=== PATIENT | male | born 1955 | race Caucasian/White ===

== ENCOUNTER 2023-12-15 22:55 | Inpatient (IN) | payer MEDICARE, OTHER, SELFPAY ==
[2023-12-15 18:22] VITALS: BP 130/91
--- NOTE | 2023-12-15 18:35 | ED.GENMED ---
History of Present Illness
General
Chief Complaint: Change in Mental Status
Source: patient
Exam Limitations: none
Time Seen by Provider: 12/15/23 18:31
Nursing documentation reviewed up to this point in time: agreed with
Travel History
Have you had any contact with someone who has COVID-19?: Unable to Answer
Do you have any symptoms of coronavirus? Fever > 100 degrees, chills, cough, shortness of breath, sore throat, loss of taste or smell, muscle aches, or headache?: No
History of Present Illness
History of Present Illness:
68-year-old male presents emergency ferment due to altered mental status and confusion for the last 2 hours. He has fallen 2 days ago, and hit his head and back, and refused evaluation. He has been up and around since the fall. He is on radiation
for brain tumors.
Past History
Past History
ED Past Medical History: Arrthythmia (Atrial fibrillation), Cancer (Lung, brain, prostate), GERD, HTN and Other (Defibrillator, psoriasis)
Social History
Tobacco: Former smoker
Alcohol: None
Drug: None
Personal:
Living: with family
Review of Systems
Review of Systems
Allergies reviewed?: Yes
Unable to obtain full review of systems at this time due to: non-verbal
All Other Systems: Not applicable
Phy Exam
Physical Exam
Physical Exam:
Physical Exam
General: Mild distress, pursed lip breathing, feces on back
Neck: supple. no meningeal signs. normal posterior pharynx
Heart: s1/s2 tachycardia, no murmur. equal radial
pulses.
HEENT: Pupils equal round reactive to light, EOMI
Lungs: Moderate respiratory distress. clear bilaterally
Abdomen: normal bowel sounds. not tender. no CVAT
Neuro: alert but nonverbal. no focal neurological deficits cranial nerves II through XII intact
Skin: no rash
Psychiatric: well kept. interactive and cooperative
Extremities: no edema. no calf tenderness. negative homans. good distal pulses
Course
Orders/Labs/Results
Orders:
Orders
12/15/23 18:39
CT Head W/o Iv Contrast Urgent
Comment:
Reason For Exam: altered mental status
Straight cath- Treatment ONCE
12/15/23 18:40
Electrocardiogram (*1) Urgent
Reason for Study: Tachycardia
EKG- Treatment ONCE
12/15/23 18:48
Complete Blood Count/With Diff Urgent
Comprehensive Metabolic Panel Urgent
12/15/23 18:49
CT Cervical Spine W/o Iv Contr Urgent
Comment:
Reason For Exam: fall
Pelvis, 1 or 2 Views CR [CR Pelvis - 1 Or 2 Views ] Urgent
Comment:
Reason For Exam: fall
12/15/23 18:50
CR Chest - 2 Views Urgent
Comment:
Reason For Exam: short of breath
12/15/23 19:21
EKG [Electrocardiogram (*1)] Urgent
Reason for Study: Shortness of Breath
12/15/23 19:22
EKG- Treatment ONCE
12/15/23 20:12
Urinalysis Reflex To Culture Urgent
Date Specimen was Collected: 12/15/23
Time Specimen was Collected: 19:12
12/15/23 22:31
Admit/Transfer Patient As Directed
Co-Sign Provider:
Level of Care: Inpatient admission
Assign to:: Medical/Surgical
Physician / Group: yuliya
Diagnosis: brain mets
Reason for Hospitalization: brain mets
Expected length of stay greater than two midnights?: Yes
ELOS- Estimated Length of Stay in days: 2
I certify the patient meets the requirements for IP care: Yes
12/15/23 22:32
Code Status As Directed
Resuscitation Status: Do not resuscitate
Reached after discussion with pt or family/Healthcare POA: Yes
DNR Bracelet Application ONCE
12/15/23 22:34
Potassium Chloride [KCl] 40 meq PO NOW STA
12/15/23 22:41
Acetaminophen [Tylenol] 650 mg PO NOW STA
12/15/23 22:47
COVID-19 Antigen Urgent
Source: Nasal Swab
Influenza A+B Rapid Molecular Urgent
ASHLEY Source: Nasal Swab
Specimen Description:
12/15/23 23:00
Flush (0.9% Sodium Chloride) [Flush (Nss)] See Dose Instructions IV PER PROTOCOL
Abnormal Lab Results
12/15/23
18:48
MCV 76.9 L fL
(80.0-94.0)
MCHC 37.1 H g/dL
(33.0-37.0)
RDW 15.0 H %
(11.5-14.5)
Abs Immat Gran (auto) 0.3 H 10^3/uL
(0-0.05)
Absolute Lymphs (auto) 0.5 L 10^3/uL
(1.2-3.4)
Immature Gran % 4.8 H %
(0-0.5)
Neutrophils % 81.8 H %
(42.2-75.2)
Lymphocytes % 8.3 L %
(20.5-51.1)
Potassium 3.3 L mmol/L
(3.5-5.1)
Chloride 97 L mmol/L
(98-107)
Glucose 125 H mg/dl
(70-99)
Total Bilirubin 1.4 H mg/dl
(0.2-1.3)
12/15/23 18:48
12/15/23 18:48
Vital Signs
Initial and Last Documented VS:
Initial Vital Signs
Temp Pulse BP Pulse Ox
98.4 F 117 130/91 100
12/15/23 18:22 12/15/23 18:22 12/15/23 18:22 12/15/23 18:22
Last Documented Vital Signs
Temp Pulse BP Pulse Ox
98.4 F 117 127/80 97
12/15/23 18:22 12/15/23 18:22 12/15/23 22:00 12/15/23 22:54
MDM/Problems Addressed
Differential Diagnosis Includes:
Intracranial hemorrhage, CVA
MDM/Problems Addressed:
68-year-old male with altered mental status, unclear etiology. Possibly CVA versus symptoms from receiving radiation for brain tumor. Admit to hospitalist.
Chronic conditions affecting care: Cancer (Metastatic lung cancer)
Acute Exacerbation and/or Progression of Chronic Illness: Cancer (Metastatic lung cancer)
*Radiology
Radiology exam reviewed: radiology read reviewed (CT head no acute findings)
*Pulse Oximetry
Patient hypoxic: no
*EKG
Interpreted by ED Provider?: Yes
EKG Intrepretation Date: 12/15/23
EKG Intrepretation Time: 19:28
Interpretation: abnormal
Comparison EKG: changes noted
Heart Rate: 102
Rate: tachycardiac
Rhythm: sinus tachycardia
[place]: normal axis
Interval: long QT
QRS Pattern: normal QRS
Ischemia: no ischemia
*Organizational Psychologist Interpretation
Rate: normal
Interpretation: normal
Heart Rate: 100
Rhythm: sinus
*Critical Care Note
Total Time (30-74mins, 75-104mins- exclusive of procedures): Not Applicable
Patient Management
Social determinants of health affecting care: Living situation and Strong social support
Discussion with other providers: Hospitalist
Escalation/DeEscalation of care consider admission/obs:
Admit indicated
ED Attending Note
-
Portions of this chart may have been created with voice recognition software.� Occasional wrong word or��sound alike� substitutions may have occurred due to the inherent limitations of voice recognition software.
Discharge Plan
Departure
Patient Disposition: Admit
Date of Disposition: 12/15/23
Time of Disposition: 21:43
Admit to: Telemetry
Presentation/result/management discussed w/ accepting MD/DO: Hospitalist
Patient with high blood pressure during this ER visit?: Yes
Condition: Fair
Discharge Problem:
Altered mental status
Interventions
Interventions:
*Risk Screen - Suicide Last Done: 12/15/23 22:00
*General Assessment Last Done: 12/15/23 18:57
*Neglect/Abuse Screening Last Done: 12/15/23 18:57
ED- Fall Risk Assessment Last Done: 12/15/23 19:04
*ED COVID-19 Vaccine History Last Done: 12/15/23 18:57
ED- Pulmonary Assessment Last Done: 12/15/23 19:04
ED- Neurological Assessment Last Done: 12/15/23 19:04
ED- Cardiac Assessment Last Done: 12/15/23 19:04
ED Swallowing Screen Last Done: 12/15/23 21:58
[2023-12-15 18:38] VITALS: BMI 32.6
[2023-12-15 19:00] VITALS: BP 116/89
[2023-12-15 19:13] LABS: % Basophils 0.3 % (0-2); % Immature Granulocytes 4.8 % (0-0.5); % Lymphocytes 8.3 % (20.5-51.1); % Monocytes 4.8 % (1.7-9.3); % Neutrophils 81.8 % (42.2-75.2); Absolute Immature Granulocytes 0.3 10^3/uL (0-0.05); Absolute Lymphocytes 0.5 10^3/uL (1.2-3.4); Absolute Monocytes 0.3 10^3/uL (0.1-0.6); Absolute Neutrophils 5.1 10^3/uL (1.4-6.5); Hematocrit 44.5 % (39.0-52.0); Hemoglobin 16.5 g/dL (13.0-18.0); Mean Corp Hgb Conc. 37.1 g/dL (33.0-37.0); Mean Corpuscular Hgb 28.5 pg (27.0-31.0); Mean Corpuscular Volume 76.9 fL (80.0-94.0); Mean Platelet Volume 8.4 fL (7.4-10.4); Nucleated Red Blood Cells % 0 % (-); Platelet Count 233 10^3/uL (130-400); Red Blood Cell Count 5.79 10^6/uL (4.70-6.10); White Blood Cell Count 6.2 10^3/uL (4.8-10.8)
[2023-12-15 19:27] LABS: ALT (SGPT) 30 U/L (0-50); AST (SGOT) 24 U/L (17-59); Albumin 4.8 g/dl (3.5-5.0); Alkaline Phosphatase 113 U/L (38-126); Blood Urea Nitrogen 14 mg/dl (9-20); Calcium 10.2 mg/dl (8.4-10.2); Carbon Dioxide 23 mmol/L (22-30); Chloride 97 mmol/L (98-107); Estimated Creatinine Clearance 103 ml/min; Glucose 125 mg/dl (70-99); Potassium 3.3 mmol/L (3.5-5.1); Sodium 135 mmol/L (135-145); Total Bilirubin 1.4 mg/dl (0.2-1.3); Total Protein 7.4 g/dl (6.3-8.2); eGFR > 60.00
[2023-12-15 20:20] LABS: Urine Albumin Negative (Neg - Trace); Urine Bilirubin Negative (Negative); Urine Character Clear (Clear); Urine Color Yellow; Urine Glucose Negative (Negative); Urine Ketone Negative (Negative); Urine Leukocyte Negative (Negative); Urine Nitrite Negative (Negative); Urine Occult Blood Negative (Negative); Urine Urobilinogen Negative (Neg - 1+)
[2023-12-15 20:45] VITALS: BP 129/86
[2023-12-15 21:00] VITALS: BP 138/90
[2023-12-15 22:00] VITALS: BP 127/80
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
[2023-12-15] MEDS: TYLENOL 650 MG PO (22:49)
[2023-12-15] MEDS: KCL 40 MEQ PO (22:51)
[2023-12-15 23:17] LABS: COVID-19 Antigen Negative (Negative)
[2023-12-16 00:20] VITALS: BMI 32.6
[2023-12-16 00:51] VITALS: BP 141/83
[2023-12-16] MEDS: MELATONIN 10 MG PO ×2 (00:53→22:10)
--- NOTE | 2023-12-16 01:09 | PTCARENOTE ---
Patient arrived from ED with daughter at bedside. Patient was restless, removing gown and throwing blankets on the grown. Patient is [place], verbal redirection was ineffective, but patient was able to state his BAZAN is not gone, provider notified.
Patient's daughter was able to complete admission. Patient became more agitated, pulling at his Ferrell, provider notified and bl wrist restrains were applied.
[2023-12-16 01:31] VITALS: BMI 30.7
[2023-12-16] MEDS: MOTRIN 400 MG PO (01:57)
[2023-12-16] MEDS: ZYPREXA 10 MG IM (01:58)
--- NOTE | 2023-12-16 02:16 | PTCARENOTE ---
Patient remains restless, unable to redirect patient. Calling out for family and cursing/yelling at staff. Provider notified, Cema ordered.
[2023-12-16 07:31] VITALS: BP 141/83
[2023-12-16] MEDS: PROTONIX 40 MG PO (08:09)
[2023-12-16] MEDS: ZINC SULFATE 220 MG PO (08:09)
[2023-12-16] MEDS: FLOMAX 0.400000000000000022 MG PO ×2 (08:09→22:10)
[2023-12-16] MEDS: THERAGRAN 1 TABLET PO (08:09)
[2023-12-16] MEDS: PROSCAR 5 MG PO (08:09)
[2023-12-16] MEDS: ASPIR LOW (ENTERIC COATED) 81 MG PO (08:09)
[2023-12-16] MEDS: ZYRTEC 10 MG PO (08:09)
[2023-12-16] MEDS: VITAMIN D3 (cholecalciferol) 25 MCG PO (08:09)
[2023-12-16] MEDS: DECADRON 2 MG PO ×2 (08:10→22:10)
[2023-12-16] MEDS: VITAMIN C 1000 MG PO (08:10)
[2023-12-16 10:28] LABS: % Basophils 0.4 % (0-2); % Eosinophils 0.5 % (0-6); % Immature Granulocytes 3.7 % (0-0.5); % Lymphocytes 6.9 % (20.5-51.1); % Monocytes 5.8 % (1.7-9.3); % Neutrophils 82.7 % (42.2-75.2); Absolute Immature Granulocytes 0.3 10^3/uL (0-0.05); Absolute Lymphocytes 0.5 10^3/uL (1.2-3.4); Absolute Monocytes 0.4 10^3/uL (0.1-0.6); Absolute Neutrophils 6.1 10^3/uL (1.4-6.5); Hematocrit 39.5 % (39.0-52.0); Hemoglobin 14.5 g/dL (13.0-18.0); Mean Corp Hgb Conc. 36.7 g/dL (33.0-37.0); Mean Corpuscular Hgb 28.8 pg (27.0-31.0); Mean Corpuscular Volume 78.5 fL (80.0-94.0); Mean Platelet Volume 8.2 fL (7.4-10.4); Nucleated Red Blood Cells % 0 % (-); Platelet Count 191 10^3/uL (130-400); Red Blood Cell Count 5.03 10^6/uL (4.70-6.10); Red Cell Dist. Width 15.1 % (11.5-14.5); White Blood Cell Count 7.4 10^3/uL (4.8-10.8)
[2023-12-16 11:56] LABS: ALT (SGPT) 25 U/L (0-50); AST (SGOT) 24 U/L (17-59); Alkaline Phosphatase 97 U/L (38-126); Blood Urea Nitrogen 15 mg/dl (9-20); Calcium 9.1 mg/dl (8.4-10.2); Carbon Dioxide 20 mmol/L (22-30); Chloride 105 mmol/L (98-107); Estimated Creatinine Clearance 103 ml/min; Glucose 107 mg/dl (70-99); Potassium 3.3 mmol/L (3.5-5.1); Sodium 133 mmol/L (135-145); Total Bilirubin 1.4 mg/dl (0.2-1.3); Total Protein 6.3 g/dl (6.3-8.2); eGFR > 60.00
--- NOTE | 2023-12-16 12:34 | W.PN.HOSP.TC ---
Today's Communication/Plan
-
c/s hospice
Assessment / Plan
Assessment / Plan
Gen: NAD, awake and alert, appears chronically ill
Eyes: EOMI, PERRLA, no scleral icterus.
Neck: supple.
CV: RRR, +S1/S2, no m/r/g.
Resp: CTAB, no rales, wheezes, or rhonchi.
Abd: +BS, soft, NT, ND
Skin: No rashes.
Neuro: CN 2-12 intact, non-focal.
Psych: Calm at the time of my exam
Altered mental status:
-likely due to recent brain radiation/worsening brain metastases
-h/o lung cancer status post upper lobectomy with metastases to frontal lobe/occipital lobe with midline shift and leptomeningeal involvement status post prior craniotomy/gamma knife/chemotherapy and now radiation
-on admission, no focal neurological deficits on examination, patient is answering questions and following commands in some capacity which is an improvement as per family.
-Urinalysis negative
-Chest x-ray negative
-COVID and influenza NEG
-CT head shows encephalomalacia, new lobulated area slight increased attenuation left posterior/parietal/occipital region since 2017 measuring 3.1 cm with surrounding decreased attenuation which could represent mass/tumor with surrounding white
matter edema
-Patient cannot have MRI due to pacemaker.� He recently had lumbar puncture 3 weeks ago.
-Continue dexamethasone which is currently being tapered.� Patient supposed to start 2 mg twice daily 12/16/23.
-Patient's radiation oncologist is Dr. Fouzia Buck at [facility].� Phone number is [phone].�
-I had a lengthy discussion with the patient's daughter at bedside. She reports that the patient's oncologist stated that after his last radiation treatment there was nothing more that could be done for the patient. She is requesting hospice at
this time. Will place hospice consult.
-Haldol PRN and seroquel for agitation
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
-Chest x-ray negative
-Pelvic x-ray no acute abnormality
-CT cervical spine no spine fracture
-CT head as written above
Hypokalemia:
-likely due to poor oral intake
-Replete potassium
-check Mg
Paroxysmal atrial fibrillation
-Not on anticoagulation
-Continue aspirin
-Continue metoprolol
BPH with history of urinary retention
-Continue finasteride, tamsulosin
-antonio placed for acute urinary retention. OK to keep as pt transitioning to hospice.
Other problems:
History of nonsustained V. tach status post ICD in 2000
History of benign congenital heart murmur
Suspected sleep apnea
Essential hypertension
Lung cancer status post lobectomy with brain metastatic disease status post craniotomy/gamma knife/chemotherapy/immunotherapy: to start Krazati
Prostate cancer
GERD/hiatal hernia: cont PPI
Psoriasis
Osteoarthritis
Hypercholesterolemia
Diverticulosis
Hemorrhoids
Left-sided hearing loss
Obesity due to excess calories
DNR/DNI
DVT prophylaxis: Lovenox
Anticipated Discharge: Within 24 hours
Subjective/Interval History
-
Date of Service: December 16, 2023
Patient denies pain at this time.
Objective Data
-
Labs:
Laboratory Results
12/16/23
10:16
WBC 7.4
Hgb 14.5
Hct 39.5
Plt Count 191
Sodium 133 L
Potassium 3.3 L
Chloride 105
Carbon Dioxide 20 L
BUN 15
Creatinine 0.8
Glucose 107 H
Calcium 9.1
Total Bilirubin 1.4 H
AST 24
ALT 25
Alkaline Phosphatase 97
Vital Signs:
Vital Signs
Temp Pulse Resp BP Pulse Ox
97.5 F 79 18 141/83 98
12/16/23 07:31 12/16/23 07:31 12/16/23 07:31 12/16/23 07:31 12/16/23 07:31
I&O
12/15/23 12/16/23 12/17/23
06:59 06:59 06:59
Intake Total 120 / 120
Output Total 1800 / 1800
Balance -1680 / -1680
[2023-12-16 13:17] LABS: Magnesium 2.2 mg/dl (1.6-2.3)
[2023-12-16] MEDS: KCL 40 MEQ PO (14:12)
[2023-12-16] MEDS: HALDOL 1 MG IV (14:12)
[2023-12-16] MEDS: FLUSH (NSS) 2 FLUSH IV (14:13)
[2023-12-16 15:30] VITALS: BP 161/88
[2023-12-16] MEDS: TOPROL XL 100 MG PO (17:15)
[2023-12-16] MEDS: LOVENOX 40 MG SC (17:15)
[2023-12-16] MEDS: NSS 1000 IV (18:07)
[2023-12-16] MEDS: DILAUDID 0.5 MG IV (18:08)
[2023-12-16] MEDS: SEROQUEL 25 MG PO (22:11)
[2023-12-16 23:00] VITALS: BP 158/94
--- NOTE | 2023-12-17 01:19 | PTCARENOTE ---
at start of shift pt found naked in room, with no restraints, and INT had been pulled out. pt adjusted in bed. called VAT - wo later came and placed INT. IVF attached. informed EATING DISORDER PSYCHOLOGIST Hever - and obtained order for b/l mitts an side rails. pt provided w/
snack, washed up, teeth brush. pt assisted to BSc w/ + soft BM
[2023-12-17 07:47] VITALS: BP 152/86
[2023-12-17] MEDS: PROTONIX 40 MG PO (08:00)
[2023-12-17] MEDS: VITAMIN C 1000 MG PO (08:00)
[2023-12-17] MEDS: PROSCAR 5 MG PO (08:00)
[2023-12-17] MEDS: FLOMAX 0.400000000000000022 MG PO ×2 (08:00→21:24)
[2023-12-17] MEDS: ZYRTEC 10 MG PO (08:00)
[2023-12-17] MEDS: ZINC SULFATE 220 MG PO (08:00)
[2023-12-17] MEDS: ASPIR LOW (ENTERIC COATED) 81 MG PO (08:00)
[2023-12-17] MEDS: THERAGRAN 1 TABLET PO (08:01)
[2023-12-17] MEDS: DECADRON 2 MG PO (08:01)
[2023-12-17] MEDS: VITAMIN D3 (cholecalciferol) 25 MCG PO (08:01)
--- NOTE | 2023-12-17 10:36 | W.PN.HOSP.TC ---
Addendum entered and electronically signed by Michael Mcmillan MD 12/17/23 11:15:
Vasogenic edema
Original Note:
Today's Communication/Plan
-
see bold
Assessment / Plan
Assessment / Plan
Gen: NAD, NCAT, appears chronically ill
Neck: supple.
CV: RRR, +S1/S2, no m/r/g.
Resp: CTAB, no rales, wheezes, or rhonchi.
Abd: +BS, soft, NT, ND
Skin: No rashes.
Neuro: sleeping but during exam does briefly awaken and swing arms
Altered mental status:
-likely due to recent brain radiation/worsening brain metastases
-h/o lung cancer status post upper lobectomy with metastases to frontal lobe/occipital lobe with midline shift and leptomeningeal involvement status post prior craniotomy/gamma knife/chemotherapy and now radiation
-on admission, no focal neurological deficits on examination, patient is answering questions and following commands in some capacity which is an improvement as per family.
-Urinalysis negative
-Chest x-ray negative
-COVID and influenza NEG
-CT head shows encephalomalacia, new lobulated area slight increased attenuation left posterior/parietal/occipital region since 2017 measuring 3.1 cm with surrounding decreased attenuation which could represent mass/tumor with surrounding white
matter edema
-Patient cannot have MRI due to pacemaker.� He recently had lumbar puncture 3 weeks ago.
-Continue dexamethasone which is currently being tapered.� Patient supposed to start 2 mg twice daily 12/16/23.
-Patient's radiation oncologist is Dr. Fouzia Buck at [facility].� Phone number is [phone].�
-I had a lengthy discussion with the patient's daughter at bedside on 12/16/23. She reported that the patient's oncologist stated that after his last radiation treatment there was nothing more that could be done for the patient. She requested
hospice at that time and a hospice consult was placed.
-Haldol PRN and seroquel for agitation
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
-Chest x-ray negative
-Pelvic x-ray no acute abnormality
-CT cervical spine no spine fracture
-CT head as written above
Paroxysmal atrial fibrillation
-Not on anticoagulation
-Continue aspirin
-Continue metoprolol
BPH with history of urinary retention
-Continue finasteride, tamsulosin
-antonio placed for acute urinary retention. OK to keep as pt transitioning to hospice.
Other problems:
Hypokalemia
History of nonsustained V. tach status post ICD in 2000
History of benign congenital heart murmur
Suspected sleep apnea
Essential hypertension
Lung cancer status post lobectomy with brain metastatic disease status post craniotomy/gamma knife/chemotherapy/immunotherapy: was to start Krazati
Prostate cancer
GERD/hiatal hernia: cont PPI
Psoriasis
Osteoarthritis
Hypercholesterolemia
Diverticulosis
Hemorrhoids
Left-sided hearing loss
Obesity due to excess calories
DNR/DNI
DVT prophylaxis: Lovenox
Meeting at 1530 with hospice.
Anticipated Discharge: Within 24 hours
Subjective/Interval History
-
Date of Service: December 17, 2023
Pt sleeping.
Objective Data
-
Vital Signs:
Vital Signs
Temp Pulse Resp BP Pulse Ox
98.3 F 85 18 152/86 100
12/17/23 07:47 12/17/23 07:47 12/17/23 07:47 12/17/23 07:47 12/17/23 07:47
I&O
12/16/23 12/17/23 12/18/23
06:59 06:59 06:59
Intake Total 120 / 120 840 / 840
Output Total 1800 / 1800 1400 / 1400
Balance -1680 / -1680 -560 / -560
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
[2023-12-17] MEDS: NSS 1000 IV (13:03)
--- NOTE | 2023-12-17 13:25 | W.PN.UPDATE ---
Addendum entered and electronically signed by Michael Mcmillan MD 12/17/23 13:29:
Dr. Buck's phone number: [phone]
Original Note:
Update Note
Progress Note Update
Case discussed with the pt's radiation oncologist over the phone, Dr. Juan Buck. He is recommending attempting treatment with IV Decadron to see if it improves the patient's postradiation delirium. Decadron 10 mg IV x 1 now followed by 6 mg IV
every 6. Pt's family updated over the phone. Dr. Buck and I both still recommend that the family meet with hospice. The IV decadron my simply improved the pt's delirium and could take 48-72 hours to show any effect.
--- NOTE | 2023-12-17 13:56 | CM ---
Received call from [facility] stating that family had called them. Sent referral through [facility]. Spoke with patient's daughter who stated that she would like to meet with CM at 15:00. Will determine if hospice can meet with them at that
time.
Plan: Case management will continue to follow and assist with discharge planning. Hospice.
[2023-12-17] MEDS: DECADRON 10 MG IV (14:04)
[2023-12-17 15:45] VITALS: BP 92/62
--- NOTE | 2023-12-17 17:04 | CM ---
Reviewed chart, met with patient's family to obtain information for assessment and to discuss hospice as there was a consult placed. Patient's and two daughter met with and stated that patient lives with his in a two story home with two
steps to enter (they are installing a ramp soon). There is one step into the bath.
Patient has a first floor set up. He has been independent with his ADLs, personal care, bathing, dressing and toileting. He was driving. Patient's stated that she was helping him when he was having bad days.
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
He has 3 daughters who live close and are supportive.
Patient has a prescription plan and uses the [facility] in [place] on for all of his medications.
Patient's PCP is Dr. Kumar Diggs.
Patient's family wanted information on hospice and therefore provided them with an overview. They stated that they are not sure that they want for patient to start hospice as of yet, they were just inquiring. Offer was made to have the family speak
with liason for hospice however they declined for now.
Reviewed patient's functional status. Patient's stated that she does not want patient in a SNF and if patient returns home when cleared she would like VN through . Her daughters confirmed that they were available to assist her. Will ask for
VN order.
Plan: Case management will continue to follow and assist with discharge planning. Tentative home with VN services.
[2023-12-17] MEDS: TOPROL XL 100 MG PO (17:25)
[2023-12-17] MEDS: LOVENOX 40 MG SC (17:25)
[2023-12-17] MEDS: DECADRON 4 MG IV (21:23)
[2023-12-17] MEDS: MELATONIN 10 MG PO (21:24)
[2023-12-17] MEDS: SEROQUEL 25 MG PO (21:24)
[2023-12-17] MEDS: HALDOL 1 MG IV (22:49)
[2023-12-17 23:08] VITALS: BP 158/83
[2023-12-18] MEDS: DECADRON 4 MG IV ×4 (01:18→20:11)
[2023-12-18] MEDS: NSS 1000 IV (01:18)
[2023-12-18 07:45] VITALS: BP 146/79
--- NOTE | 2023-12-18 08:05 | W.PN.HOSP.TC ---
Today's Communication/Plan
-
see bold
Assessment / Plan
Assessment / Plan
Gen: NAD, AAOx3.
Eyes: EOMI, PERRLA, no scleral icterus.
Neck: supple.
CV: RRR, +S1/S2, no m/r/g.
Resp: CTAB, no rales, wheezes, or rhonchi.
Abd: +BS, soft, NT, ND
Skin: No rashes.
Neuro: CN 2-12 intact, non-focal.
Psych: Normal mood and affect.
Altered mental status:
-likely due to recent brain radiation, possible vasogenic edema, worsening brain metastases
-h/o lung cancer status post upper lobectomy with metastases to frontal lobe/occipital lobe with midline shift and leptomeningeal involvement status post prior craniotomy/gamma knife/chemotherapy and now radiation
-on admission, no focal neurological deficits on examination, patient is answering questions and following commands in some capacity which is an improvement as per family.
-Urinalysis negative
-Chest x-ray negative
-COVID and influenza NEG
-CT head shows encephalomalacia, new lobulated area slight increased attenuation left posterior/parietal/occipital region since 2017 measuring 3.1 cm with surrounding decreased attenuation which could represent mass/tumor with surrounding white
matter edema
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
-Patient's radiation oncologist is Dr. Juan Buck at [facility].� Phone number is [phone].�
-I had a lengthy discussion with the patient's daughter at bedside on 12/16/23. She reported that the patient's oncologist stated that after his last radiation treatment there was nothing more that could be done for the patient. She requested
hospice at that time and a hospice consult was placed.
-Haldol PRN and seroquel for agitation
-Pt's mentation greatly improved on IV Decadron, cont
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
-Chest x-ray negative
-Pelvic x-ray no acute abnormality
-CT cervical spine no spine fracture
-CT head as written above
Paroxysmal atrial fibrillation
-Not on anticoagulation
-Continue aspirin
-Continue metoprolol
BPH with history of urinary retention
-Continue finasteride, tamsulosin
-antonio placed for acute urinary retention. OK to keep as pt transitioning to hospice.
Other problems:
Hypokalemia
History of nonsustained V. tach status post ICD in 2000
History of benign congenital heart murmur
Suspected sleep apnea
Essential hypertension
Lung cancer status post lobectomy with brain metastatic disease status post craniotomy/gamma knife/chemotherapy/immunotherapy: was to start Krazati
Prostate cancer
GERD/hiatal hernia: cont PPI
Psoriasis
Osteoarthritis
Hypercholesterolemia
Diverticulosis
Hemorrhoids
Left-sided hearing loss
Obesity due to excess calories
DNR/DNI
DVT prophylaxis: Lovenox
Anticipated Discharge: 24 - 48 hours
Subjective/Interval History
-
Date of Service: December 18, 2023
Denies CP/SOB.
Objective Data
-
Vital Signs:
Vital Signs
Temp Pulse Resp BP Pulse Ox
98.5 F 77 17 146/79 99
12/18/23 07:45 12/18/23 07:45 12/18/23 07:45 12/18/23 07:45 12/18/23 07:45
I&O
12/17/23 12/18/23 12/19/23
06:59 06:59 06:59
Intake Total 840 / 840 1200 / 1200
Output Total 1400 / 1400 1900 / 1900
Balance -560 / -560 -700 / -700
[2023-12-18] MEDS: PROSCAR 5 MG PO (08:51)
[2023-12-18] MEDS: VITAMIN C 1000 MG PO (08:51)
[2023-12-18] MEDS: ASPIR LOW (ENTERIC COATED) 81 MG PO (08:51)
[2023-12-18] MEDS: VITAMIN D3 (cholecalciferol) 25 MCG PO (08:51)
[2023-12-18] MEDS: THERAGRAN 1 TABLET PO (08:51)
[2023-12-18] MEDS: PROTONIX 40 MG PO (08:51)
[2023-12-18] MEDS: ZYRTEC 10 MG PO (08:54)
[2023-12-18] MEDS: ZINC SULFATE 220 MG PO (08:55)
[2023-12-18] MEDS: FLOMAX 0.400000000000000022 MG PO ×2 (08:55→20:11)
[2023-12-18 15:28] VITALS: BP 137/73
[2023-12-18] MEDS: LOVENOX 40 MG SC (17:14)
[2023-12-18] MEDS: TOPROL XL 100 MG PO (17:14)
[2023-12-18] MEDS: MELATONIN 10 MG PO (21:17)
[2023-12-18] MEDS: SEROQUEL 25 MG PO (21:17)
[2023-12-18 23:17] VITALS: BP 123/65
[2023-12-19] MEDS: DECADRON 4 MG IV ×3 (03:04→16:56)
[2023-12-19 07:44] VITALS: BP 134/70
[2023-12-19] MEDS: PROTONIX 40 MG PO (08:06)
[2023-12-19] MEDS: VITAMIN C 1000 MG PO (08:06)
[2023-12-19] MEDS: FLOMAX 0.400000000000000022 MG PO ×2 (08:06→20:10)
[2023-12-19] MEDS: VITAMIN D3 (cholecalciferol) 25 MCG PO (08:06)
[2023-12-19] MEDS: THERAGRAN 1 TABLET PO (08:06)
[2023-12-19] MEDS: ASPIR LOW (ENTERIC COATED) 81 MG PO (08:06)
[2023-12-19] MEDS: ZINC SULFATE 220 MG PO (08:06)
[2023-12-19] MEDS: ZYRTEC 10 MG PO (08:06)
[2023-12-19] MEDS: PROSCAR 5 MG PO (08:06)
--- NOTE | 2023-12-19 09:28 | W.PN.HOSP.TC ---
Today's Communication/Plan
-
goal for d/c tomorrow
Assessment / Plan
Assessment / Plan
Gen: NAD, Awake and alert
Eyes: EOMI, PERRLA, no scleral icterus.
Neck: supple.
CV: remains RRR, +S1/S2, no m/r/g.
Resp: remains CTAB, no rales, wheezes, or rhonchi.
Abd: +BS, soft, NT, ND
Skin: No rashes.
Neuro: remains CN 2-12 intact, non-focal.
Psych: Normal mood and affect.
Altered mental status:
-likely due to recent brain radiation, possible vasogenic edema, worsening brain metastases
-h/o lung cancer status post upper lobectomy with metastases to frontal lobe/occipital lobe with midline shift and leptomeningeal involvement status post prior craniotomy/gamma knife/chemotherapy and now radiation
-on admission, no focal neurological deficits on examination, patient is answering questions and following commands in some capacity which is an improvement as per family.
-Urinalysis negative
-Chest x-ray negative
-COVID and influenza NEG
-CT head shows encephalomalacia, new lobulated area slight increased attenuation left posterior/parietal/occipital region since 2017 measuring 3.1 cm with surrounding decreased attenuation which could represent mass/tumor with surrounding white
matter edema
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
-Patient's radiation oncologist is Dr. Juan Buck at [facility].� Phone number is [phone].�
-I had a lengthy discussion with the patient's daughter at bedside on 12/16/23. She reported that the patient's oncologist stated that after his last radiation treatment there was nothing more that could be done for the patient. She requested
hospice at that time and a hospice consult was placed.
-Haldol PRN and seroquel for agitation
-Pt's mentation greatly improved on IV Decadron, cont but decrease to 4mg IV Q8H
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
-Chest x-ray negative
-Pelvic x-ray no acute abnormality
-CT cervical spine no spine fracture
-CT head as written above
Paroxysmal atrial fibrillation
-Not on anticoagulation
-Continue aspirin
-Continue metoprolol
BPH with history of urinary retention
-Continue finasteride, tamsulosin
-antonio placed for acute urinary retention. OK to keep as pt transitioning to hospice.
Other problems:
Hypokalemia
History of nonsustained V. tach status post ICD in 2000
History of benign congenital heart murmur
Suspected sleep apnea
Essential hypertension
Lung cancer status post lobectomy with brain metastatic disease status post craniotomy/gamma knife/chemotherapy/immunotherapy: was to start Krazati
Prostate cancer
GERD/hiatal hernia: cont PPI
Psoriasis
Osteoarthritis
Hypercholesterolemia
Diverticulosis
Hemorrhoids
Left-sided hearing loss
Obesity due to excess calories
DNR/DNI
DVT prophylaxis: Lovenox
Anticipated Discharge: Within 24 hours
Subjective/Interval History
-
Date of Service: December 19, 2023
No new complaints.
Objective Data
-
Vital Signs:
Vital Signs
Temp Pulse Resp BP Pulse Ox
98 F 69 17 134/70 98
12/19/23 07:44 12/19/23 07:44 12/19/23 07:44 12/19/23 07:44 12/19/23 07:44
I&O
12/18/23 12/19/23 12/20/23
06:59 06:59 07:59
Intake Total 1200 / 1200 480 / 480
Output Total 1900 / 1900 550 / 550
Balance -700 / -700 -70 / -70
[2023-12-19 10:27] LABS: Blood Urea Nitrogen 17 mg/dl (9-20); Calcium 9.1 mg/dl (8.4-10.2); Carbon Dioxide 21 mmol/L (22-30); Chloride 96 mmol/L (98-107); Estimated Creatinine Clearance 118 ml/min; Glucose 223 mg/dl (70-99); Potassium 3.5 mmol/L (3.5-5.1); Sodium 129 mmol/L (135-145); eGFR > 60.00
[2023-12-19 11:00] LABS: Mean Corp Hgb Conc. 37.1 g/dL (33.0-37.0); Mean Platelet Volume 8.5 fL (7.4-10.4); Platelet Count 195 10^3/uL (130-400); Red Blood Cell Count 4.49 10^6/uL (4.70-6.10); Red Cell Dist. Width 14.8 % (11.5-14.5); White Blood Cell Count 6.8 10^3/uL (4.8-10.8)
[2023-12-19] MEDS: TYLENOL 650 MG PO (13:15)
[2023-12-19 14:19] VITALS: BP 114/60; PULSE 74; O2SAT 99
[2023-12-19 14:54] VITALS: BP 114/62; PULSE 76
--- NOTE | 2023-12-19 14:59 | CM ---
Addendum entered by Ani Shelley 12/19/23 16:08:
Hospice referral was sent to [facility] on 12/16; no response
Sent referral to Hospice and VNA via [facility]; asked equipment operator/laborer/supervisor telephone lineworker to call on Thursday morning after 10 AM if not in house
Addendum entered by Ani Shelley 12/19/23 15:18:
Spoke via phone to patient's .
is in the process of obtaining electric bed and other equipment needed to care for on 1st floor of home.
is overwhelmed and stated that she wants to have equipment in place in the home before patient is discharged from the hospital
is open to Hospice consult and will be here at the hospital tomorrow after 1000 AM. Sent tiger text to Attending for Hospice Consult order.
Contacted equipment operator/laborer/supervisor rn oncology research via tiger text
CM will follow up with tomorrow
Original Note:
Per care team request went to patient's room to discuss DC plan with spouse.
Per RN, spouse left the hospital.
Belly Dump Driver attempted to reach spouse via phone; no answer; left a voice mail to call back. Will speak with spouse tomorrow if unable to connect before end of shift today.
[2023-12-19 15:23] VITALS: BP 129/71
[2023-12-19] MEDS: TOPROL XL 100 MG PO (16:57)
[2023-12-19] MEDS: LOVENOX 40 MG SC (16:57)
[2023-12-19] MEDS: SEROQUEL 25 MG PO (22:05)
[2023-12-19] MEDS: MELATONIN 10 MG PO (22:05)
[2023-12-19 23:00] VITALS: BP 146/90
[2023-12-20] MEDS: DECADRON 4 MG IV ×3 (00:28→20:15)
[2023-12-20 07:42] VITALS: BP 140/87
[2023-12-20] MEDS: PROTONIX 40 MG PO (08:15)
[2023-12-20] MEDS: THERAGRAN 1 TABLET PO (08:15)
[2023-12-20] MEDS: FLOMAX 0.400000000000000022 MG PO ×2 (08:15→20:14)
[2023-12-20] MEDS: ZYRTEC 10 MG PO (08:18)
[2023-12-20] MEDS: VITAMIN D3 (cholecalciferol) 25 MCG PO (08:18)
[2023-12-20] MEDS: PROSCAR 5 MG PO (08:18)
[2023-12-20] MEDS: ASPIR LOW (ENTERIC COATED) 81 MG PO (08:18)
[2023-12-20] MEDS: VITAMIN C 1000 MG PO (08:18)
[2023-12-20] MEDS: ZINC SULFATE 220 MG PO (08:18)
[2023-12-20] MEDS: MOTRIN 400 MG PO (08:33)
--- NOTE | 2023-12-20 09:26 | HOSPNOTE ---
Spoke with this patients this morning. She states the patient may want to go to rehab after this hospital stay before signing onto Hospice. She was informed about Hospice philosophy and care. She is also considering P.T in the home.
Information given was comprehensive . She would still like a visit tomorrow by a Hospice nurse. Will pass this request onto the Hospice team.
--- NOTE | 2023-12-20 09:36 | CM ---
Addendum entered by Ani Shelley 12/20/23 10:31:
Met with patient and at bedside this morning; provided list of senior care facilities to consider if they decide to move forward with short term rehab instead of home with home services.
Addendum entered by Ani Shelley 12/20/23 10:22:
PT recommends SNF vs Home for rehab
Original Note:
Received a tiger text from patient financial specialist, Sue Rosa. She spoke with patient's via phone and stated that patient's may want inpatient or home rehab before starting hospice. distance education faculty liaison will meet with tomorrow.
--- NOTE | 2023-12-20 09:50 | W.PN.HOSP.TC ---
Today's Communication/Plan
-
see bold
Assessment / Plan
Assessment / Plan
Gen: NAD, Awake and alert
Eyes: EOMI, PERRLA, no scleral icterus.
Neck: supple.
CV: continues to remain RRR, +S1/S2, no m/r/g.
Resp: continues to remain CTAB, no rales, wheezes, or rhonchi.
Abd: +BS, soft, NT, ND
Skin: No rashes.
Neuro: continues to remain CN 2-12 intact, non-focal.
Psych: Normal mood and affect.
Altered mental status:
-likely due to recent brain radiation, possible vasogenic edema, worsening brain metastases
-h/o lung cancer status post upper lobectomy with metastases to frontal lobe/occipital lobe with midline shift and leptomeningeal involvement status post prior craniotomy/gamma knife/chemotherapy and now radiation
-on admission, no focal neurological deficits on examination, patient is answering questions and following commands in some capacity which is an improvement as per family.
-Urinalysis negative
-Chest x-ray negative
-COVID and influenza NEG
-CT head shows encephalomalacia, new lobulated area slight increased attenuation left posterior/parietal/occipital region since 2017 measuring 3.1 cm with surrounding decreased attenuation which could represent mass/tumor with surrounding white
matter edema
-Patient cannot have MRI due to pacemaker.� He recently had lumbar puncture 3 weeks FAGOTER.
-Patient's radiation oncologist is Dr. Juan Buck at [facility].� Phone number is [phone].�
-I had a lengthy discussion with the patient's daughter at bedside on 12/16/23. She reported that the patient's oncologist stated that after his last radiation treatment there was nothing more that could be done for the patient. She requested
hospice at that time and a hospice consult was placed. Family to meet with hospice on 12/21/23.
-Haldol PRN and seroquel for agitation
-Pt's mentation greatly improved on IV Decadron, cont but continue to taper to 4mg IV Q12H
Recent fall 2 days FAGOTER with head injury
-Chest x-ray negative
-Pelvic x-ray no acute abnormality
-CT cervical spine no spine fracture
-CT head as written above
Paroxysmal atrial fibrillation
-Not on anticoagulation
-Continue aspirin
-Continue metoprolol
BPH with history of urinary retention
-Continue finasteride, tamsulosin
-antonio placed for acute urinary retention. OK to keep as pt transitioning to hospice.
Other problems:
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 Initiate fluid restriction.
Hypokalemia
History of nonsustained V. tach status post ICD in 2000
History of benign congenital heart murmur
Suspected sleep apnea
Essential hypertension
Lung cancer status post lobectomy with brain metastatic disease status post craniotomy/gamma knife/chemotherapy/immunotherapy: was to start Krazati
Prostate cancer
GERD/hiatal hernia: cont PPI
Psoriasis
Osteoarthritis
Hypercholesterolemia
Diverticulosis
Hemorrhoids
Left-sided hearing loss
Obesity due to excess calories
DNR/DNI
DVT prophylaxis: Lovenox
I had a lengthy discussion with the pt's daughter at bedside today.
RN updated
Meeting with hospice tomorrow as per CM.
Total time spent on today's encounter was 50 minutes which included time spent in counseling the patient/family regarding diagnosis and treatment plan as listed above, goals of care, and symptom management. Case was discussed with nursing staff,
specialists, and care coordinators/case management. All labs and imaging personally reviewed by me. Remainder the time spent in detailed review of previous records, lab data, imaging, and other medical provider documentation.
Anticipated Discharge: Within 24 hours
Subjective/Interval History
-
Date of Service: December 20, 2023
No new complaints.
Objective Data
-
Vital Signs:
Vital Signs
Temp Pulse Resp BP Pulse Ox
97.8 F 65 16 140/87 97
12/20/23 07:42 12/20/23 07:42 12/20/23 07:42 12/20/23 07:42 12/20/23 07:42
I&O
12/19/23 12/20/23 12/21/23
05:59 06:59 06:59
Intake Total
Output Total
Balance
[2023-12-20 15:40] VITALS: BP 136/83
[2023-12-20] MEDS: TOPROL XL 100 MG PO (17:18)
[2023-12-20] MEDS: LOVENOX 40 MG SC (17:19)
[2023-12-20] MEDS: SEROQUEL 25 MG PO (21:18)
[2023-12-20] MEDS: MELATONIN 10 MG PO (21:18)
[2023-12-20 23:13] VITALS: BP 161/91
[2023-12-21 07:00] VITALS: BP 159/95
[2023-12-21 07:14] LABS: Blood Urea Nitrogen 17 mg/dl (9-20); Carbon Dioxide 28 mmol/L (22-30); Chloride 94 mmol/L (98-107); Estimated Creatinine Clearance 118 ml/min; Glucose 96 mg/dl (70-99); Potassium 3.3 mmol/L (3.5-5.1); Sodium 128 mmol/L (135-145); eGFR > 60.00
[2023-12-21] MEDS: ASPIR LOW (ENTERIC COATED) 81 MG PO (08:40)
[2023-12-21] MEDS: VITAMIN C 1000 MG PO (08:40)
[2023-12-21] MEDS: PROTONIX 40 MG PO (08:40)
--- NOTE | 2023-12-21 08:40 | W.PN.HOSP.TC ---
Today's Communication/Plan
-
Patient is doing better
Continue steroids with goals of tapering - will likely switch to PO steroids
Discussed case with patient's
Assessment / Plan
Assessment / Plan
Physical Exam
Gen: NAD, Awake and alert
HEENT: Normocephalic
Neck: supple.
CV: continues to remain RRR, +S1/S2.
Resp: continues to remain CTAB.
Abd: +BS, soft, NT, ND
Skin: Warm. Dry.
Neuro: continues to remain CN 2-12 intact, non-focal.
Psych: Normal mood and affect.
Assessment/Plan
acute encephalopathy due to recent radiation, improved with IV steroids. Hospice meeting tomorrow. Multiple family members involved.
Altered mental status:
-likely due to recent brain radiation, possible vasogenic edema, worsening brain metastases
-h/o lung cancer status post upper lobectomy with metastases to frontal lobe/occipital lobe with midline shift and leptomeningeal involvement status post prior craniotomy/gamma knife/chemotherapy and now radiation
-on admission, no focal neurological deficits on examination, patient is answering questions and following commands in some capacity which is an improvement as per family.
-Urinalysis negative
-Chest x-ray negative
-COVID and influenza NEG
-CT head shows encephalomalacia, new lobulated area slight increased attenuation left posterior/parietal/occipital region since 2017 measuring 3.1 cm with surrounding decreased attenuation which could represent mass/tumor with surrounding white
matter edema
-Patient cannot have MRI due to pacemaker.� He recently had lumbar puncture 3 weeks RN CLINICIAN.
-Patient's radiation oncologist is Dr. Juan Buck at [facility].� Phone number is [phone].�
-Dr. Mcmillan had a lengthy discussion with the patient's daughter at bedside on 12/16/23. She reported that the patient's oncologist stated that after his last radiation treatment there was nothing more that could be done for the patient. She requested
hospice at that time and a hospice consult was placed. Family met with hospice on 12/21/23 - however patient's told Dr. Torres on December 21, 2023 that plan is for patient to be discharged to a rehab facility WITHOUT hospice or comfort care
-Haldol PRN and seroquel for agitation
-Pt's mentation greatly improved on IV Decadron, cont but continue to taper to 4mg IV Q12H
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
-Chest x-ray negative
-Pelvic x-ray no acute abnormality
-CT cervical spine no spine fracture
-CT head as written above
Paroxysmal atrial fibrillation
-Not on anticoagulation
-Continue aspirin
-Continue metoprolol
BPH with history of urinary retention
-Continue finasteride, tamsulosin
-antonio was previously placed for acute urinary retention
-Consulted urology, recommendations appreciated
Other problems:
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 Continue PO fluid restriction.
Hypokalemia
History of nonsustained V. tach status post ICD in 2000
History of benign congenital heart murmur
Suspected sleep apnea
Essential hypertension
Lung cancer status post lobectomy with brain metastatic disease status post craniotomy/gamma knife/chemotherapy/immunotherapy: was to start Krazati
Prostate cancer
GERD/hiatal hernia: cont PPI
Psoriasis
Osteoarthritis
Hypercholesterolemia
Diverticulosis
Hemorrhoids
Left-sided hearing loss
Obesity due to excess calories
DNR/DNI
DVT prophylaxis: Lovenox
I had a lengthy discussion with the pt's at bedside today.
Total time spent on today's encounter was 55 minutes which included time spent in counseling the patient/family regarding diagnosis and treatment plan as listed above, goals of care, and time spent in detailed review of previous records, lab data,
imaging, and other medical provider documentation.
Anticipated Discharge: 24 - 48 hours
Subjective/Interval History
-
Date of Service: December 21, 2023
Patient was seen and examined. His was at bedside. Other than increased urinary frequency, no other new symptoms or issues reported.
Objective Data
-
Labs:
Laboratory Results
12/21/23
06:11
Sodium 128 L
Potassium 3.3 L
Chloride 94 L
Carbon Dioxide 28
BUN 17
Creatinine 0.7
Glucose 96
Calcium 9.0
Vital Signs:
Vital Signs
Temp Pulse Resp BP Pulse Ox
97.8 F 65 20 161/91 94
12/20/23 23:13 12/20/23 23:13 12/20/23 23:13 12/20/23 23:13 12/20/23 23:13
I&O
12/20/23 12/21/23 12/22/23
06:59 06:59 06:59
Intake Total 1260 / 1260
Output Total 850 / 850
Balance 410 / 410
[2023-12-21] MEDS: PROSCAR 5 MG PO (08:41)
[2023-12-21] MEDS: DECADRON 4 MG IV ×2 (08:41→19:32)
[2023-12-21] MEDS: FLOMAX 0.400000000000000022 MG PO ×2 (08:41→19:32)
[2023-12-21] MEDS: ZYRTEC 10 MG PO (08:41)
[2023-12-21] MEDS: THERAGRAN 1 TABLET PO (08:41)
[2023-12-21] MEDS: ZINC SULFATE 220 MG PO (08:41)
[2023-12-21] MEDS: VITAMIN D3 (cholecalciferol) 25 MCG PO (08:41)
[2023-12-21 11:00] VITALS: BP 125/83
[2023-12-21] MEDS: MIRALAX 17 GRAMS PO (12:14)
--- NOTE | 2023-12-21 12:26 | HOSPNOTE ---
Met with family and they are deciding if patient should go to rehab or home with hospice services. Family would like a PT evaluation and then make some decisions. Hospice will continue to follow.
--- NOTE | 2023-12-21 13:33 | CM ---
Addendum entered by SIMI Adams 12/21/23 14:40:
Received call from Blanca at [facility] who stated that she can accept patient. Will await other determinations.
Original Note:
Met with patient's family at their request. Patient's and daughter stated that as patient is doing a little better, they would like him to go to SNF prior to hospice. They requested that the following facilities are faxed: [facility] and
[facility]
They were agreeable to [place] facilities being faxed as well and therefore faxed: [facility], [facility], [facility], [facility] and [facility]. Will await determinations and report back to family.
Plan: Case management will continue to follow and assist with discharge planning. Family now opting for SNF.
[2023-12-21] MEDS: KCL 40 MEQ PO (14:02)
[2023-12-21 15:32] LABS: Urine Albumin Negative (Neg - Trace); Urine Bilirubin Negative (Negative); Urine Character Clear (Clear); Urine Color Yellow; Urine Glucose Negative (Negative); Urine Ketone Negative (Negative); Urine Leukocyte Negative (Negative); Urine Nitrite Negative (Negative); Urine Occult Blood Negative (Negative); Urine Specific Gravity 1.015 (<1.030); Urine Urobilinogen Negative (Neg - 1+)
[2023-12-21 16:32] VITALS: BP 118/81; BP 125/83; PULSE 81
--- NOTE | 2023-12-21 17:27 | PTCARENOTE ---
bladder scan requested by MD Galdamez resulting in 390 mls in bladder. pt voided 100 mls s/p bladder scan. post void bladder scan was 245 mls. MD Hagen just arrived to bedside, results reported. MD Galdamez reports he will enter desired
orders accordingly per first hand communication with this RN. spouse spoke to MD and is up to date. care plan continues to be followed.
--- NOTE | 2023-12-21 17:34 | W.PN.URO.CBU ---
Today's Communication / Plan
-
recheck pvr by am if over 500cc place antonio
Assessment / Plan
-
frequency with nl u/a and pvr over 250 but is voiding [place] etiolois including recent e For now observe no rxs monitor pvr
Diagnosis
-
Date of Service: December 21, 2023
-
Patient Diagnosis:[facility] had retention as of yesterday now antonio out and frequency feels like empting u/a neg
Post Op Day:
Subjective
-
uriary frequency urgency no duysuria no hematuria
Objective
-
Vital Signs
Temp Pulse Resp BP Pulse Ox
97.8 F 81 17 125/83 98
12/21/23 11:00 12/21/23 11:00 12/21/23 11:00 12/21/23 11:00 12/21/23 11:00
Intake and Output
12/20/23 12/21/23 12/22/23
06:59 06:59 06:59
Intake Total 1260 / 1260
Output Total 850 / 850
Balance 410 / 410
Intake:
Oral fluids 1260 / 1260
IV fluids (Total) 0 / 0
IV piggybacks 0 / 0
Output:
Urine, Antonio
Urine, Voided 850 / 850
Other:
Number of approximated SMALL 1
amounts of urine
How many times incontinent 1
SMALL amount urine
How many times incontinent 2
SATURATED amount urine
Laboratory Results
12/21/23 06:11
Review of Systems
-
: Frequency and Urgency
Physical Exam
-
General - well developed, well nourished, no acute distress
Chest - clear bilaterally
Abdomen - soft, non-tender, positive bowel sounds, no CVAT, no incisional pain or distention
Genitalia - normal
Rectal - normal
Skin - warm & dry with no rash
Neuro - AOx3, no motor deficits
Extremities - no clubbing, no cyanosis, no edema
Incision - clean, dry
Dressing - clean, dry, intact
Counseling
-
monitor pvr by am if over 500cc place antonio
Care Review
Data Reviewed
Discussed with: Nursing and Family
[2023-12-21] MEDS: TOPROL XL 100 MG PO (17:54)
[2023-12-21] MEDS: LOVENOX 40 MG SC (17:55)
[2023-12-21 20:49] LABS: % Basophils 0.5 % (0-2); % Eosinophils 0.3 % (0-6); % Immature Granulocytes 5.5 % (0-0.5); % Lymphocytes 13.4 % (20.5-51.1); % Monocytes 5.9 % (1.7-9.3); % Neutrophils 74.4 % (42.2-75.2); Absolute Immature Granulocytes 0.4 10^3/uL (0-0.05); Absolute Lymphocytes 0.9 10^3/uL (1.2-3.4); Absolute Monocytes 0.4 10^3/uL (0.1-0.6); Absolute Neutrophils 4.9 10^3/uL (1.4-6.5); Hemoglobin 15.1 g/dL (13.0-18.0); Mean Corp Hgb Conc. 37.8 g/dL (33.0-37.0); Mean Corpuscular Hgb 29.3 pg (27.0-31.0); Mean Corpuscular Volume 77.5 fL (80.0-94.0); Mean Platelet Volume 8.3 fL (7.4-10.4); Nucleated Red Blood Cells % 0 % (-); Platelet Count 211 10^3/uL (130-400); Red Blood Cell Count 5.16 10^6/uL (4.70-6.10); Red Cell Dist. Width 14.4 % (11.5-14.5); White Blood Cell Count 6.6 10^3/uL (4.8-10.8)
[2023-12-21] MEDS: MELATONIN 10 MG PO (22:27)
[2023-12-21] MEDS: SEROQUEL 25 MG PO (22:27)
[2023-12-21 23:05] VITALS: BP 144/89
[2023-12-22 07:15] LABS: Blood Urea Nitrogen 15 mg/dl (9-20); Calcium 9.2 mg/dl (8.4-10.2); Carbon Dioxide 28 mmol/L (22-30); Chloride 94 mmol/L (98-107); Estimated Creatinine Clearance 118 ml/min; Glucose 92 mg/dl (70-99); Potassium 3.7 mmol/L (3.5-5.1); Sodium 127 mmol/L (135-145); eGFR > 60.00
[2023-12-22 07:29] VITALS: BP 160/93
[2023-12-22] MEDS: DECADRON 4 MG PO ×2 (07:45→20:37)
[2023-12-22] MEDS: MIRALAX 17 GRAMS PO (07:45)
[2023-12-22] MEDS: ZINC SULFATE 220 MG PO (07:45)
[2023-12-22] MEDS: PROTONIX 40 MG PO (07:45)
[2023-12-22] MEDS: VITAMIN C 1000 MG PO (07:45)
[2023-12-22] MEDS: ASPIR LOW (ENTERIC COATED) 81 MG PO (07:45)
[2023-12-22] MEDS: ZYRTEC 10 MG PO (07:45)
[2023-12-22] MEDS: FLOMAX 0.400000000000000022 MG PO ×2 (07:46→20:37)
[2023-12-22] MEDS: PROSCAR 5 MG PO (07:46)
[2023-12-22] MEDS: THERAGRAN 1 TABLET PO (07:46)
[2023-12-22] MEDS: VITAMIN D3 (cholecalciferol) 25 MCG PO (07:46)
[2023-12-22] MEDS: TYLENOL 650 MG PO (09:03)
[2023-12-22 09:15] LABS: % Basophils 0.3 % (0-2); % Eosinophils 0.6 % (0-6); % Immature Granulocytes 5.2 % (0-0.5); % Lymphocytes 14.8 % (20.5-51.1); % Monocytes 4.8 % (1.7-9.3); % Neutrophils 74.3 % (42.2-75.2); Absolute Immature Granulocytes 0.3 10^3/uL (0-0.05); Absolute Lymphocytes 0.9 10^3/uL (1.2-3.4); Absolute Monocytes 0.3 10^3/uL (0.1-0.6); Absolute Neutrophils 4.7 10^3/uL (1.4-6.5); Hemoglobin 16.1 g/dL (13.0-18.0); Mean Corp Hgb Conc. 37.4 g/dL (33.0-37.0); Mean Corpuscular Hgb 28.8 pg (27.0-31.0); Mean Corpuscular Volume 76.9 fL (80.0-94.0); Mean Platelet Volume 8.4 fL (7.4-10.4); Nucleated Red Blood Cells % 0 % (-); Platelet Count 229 10^3/uL (130-400); Red Blood Cell Count 5.59 10^6/uL (4.70-6.10); Red Cell Dist. Width 14.5 % (11.5-14.5); White Blood Cell Count 6.3 10^3/uL (4.8-10.8)
--- NOTE | 2023-12-22 11:48 | CM ---
Reviewed chart, placed a call to patient's to update that there are accepting facilities at: [facility], [facility], [facility]. Patient's daughter asked about [facility] and was advised that they did not offer a bed. She
stated that her daughter's sister in law works there and she wants to determine if she can help to get a bed. Patient's was made aware of where geographically the [place] facilities are located. Will await return call.
Plan: Case management will continue to follow and assist with discharge planning. SNF when stable. Patient will not need auth to transfer.
[2023-12-22 12:10] VITALS: BMI 30.7
--- NOTE | 2023-12-22 14:54 | W.PN.HOSP.TC ---
Today's Communication/Plan
-
Discussed with case management - placement is pending - they are working with patient's family to find a place
Assessment / Plan
Assessment / Plan
Physical Exam
Gen: NAD, Awake and alert
HEENT: Normocephalic
Neck: supple.
CV: continues to remain RRR, +S1/S2.
Resp: continues to remain CTAB.
Abd: +BS, soft, NT, ND
Skin: Warm. Dry.
Neuro: continues to remain CN 2-12 intact, non-focal.
Psych: Normal mood and affect.
Assessment/Plan
Altered mental status:
-likely due to recent brain radiation, possible vasogenic edema, worsening brain metastases
-h/o lung cancer status post upper lobectomy with metastases to frontal lobe/occipital lobe with midline shift and leptomeningeal involvement status post prior craniotomy/gamma knife/chemotherapy and now radiation
-on admission, no focal neurological deficits on examination, patient is answering questions and following commands in some capacity which is an improvement as per family.
-Urinalysis negative
-Chest x-ray negative
-COVID and influenza NEG
-CT head shows encephalomalacia, new lobulated area slight increased attenuation left posterior/parietal/occipital region since 2017 measuring 3.1 cm with surrounding decreased attenuation which could represent mass/tumor with surrounding white
matter edema
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
-Patient's radiation oncologist is Dr. Juan Buck at [facility].� Phone number is [phone].�
-Dr. Mcmillan had a lengthy discussion with the patient's daughter at bedside on 12/16/23. She reported that the patient's oncologist stated that after his last radiation treatment there was nothing more that could be done for the patient. She requested
hospice at that time and a hospice consult was placed. Family met with hospice on 12/21/23 - however patient's told Dr. Torres on December 21, 2023 that plan is for patient to be discharged to a rehab facility WITHOUT hospice or comfort care
-Haldol PRN and Seroquel for agitation
-Pt's mentation greatly improved on IV Decadron, cont but continue to taper to 4mg IV Q12H
-Continue Decadron PO 4 mg Q12H on discharge
-Follow-up closely with oncology and neurology outpatient
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
-Chest x-ray negative
-Pelvic x-ray no acute abnormality
-CT cervical spine no spine fracture
-CT head as written above
Paroxysmal atrial fibrillation
-Not on anticoagulation
-Continue aspirin
-Continue metoprolol
BPH with history of urinary retention
-Continue finasteride, tamsulosin
-antonio was previously placed for acute urinary retention
-Consulted urology, recommendations appreciated
-Bladder scan with 593 cc in bladder on December 22, 2023 morning
-Patient should either go home with antonio or restart scheduled intermittent cath 3-4 times daily (as per urology)
Other problems:
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 Continue PO fluid restriction.
Hypokalemia
History of nonsustained V. tach status post ICD in 2000
History of benign congenital heart murmur
Suspected sleep apnea
Essential hypertension
Lung cancer status post lobectomy with brain metastatic disease status post craniotomy/gamma knife/chemotherapy/immunotherapy: was to start Krazati
Prostate cancer
GERD/hiatal hernia: cont PPI
Psoriasis
Osteoarthritis
Hypercholesterolemia
Diverticulosis
Hemorrhoids
Left-sided hearing loss
Obesity due to excess calories
DNR/DNI
DVT prophylaxis: Lovenox
Anticipated Discharge: 24 - 48 hours
Subjective/Interval History
-
Date of Service: December 22, 2023
Patient was seen and examined. He reported no new symptoms or complaints.
Objective Data
-
Labs:
Laboratory Results
12/22/23 12/22/23
06:03 08:38
WBC 6.3
Hgb 16.1
Hct 43.0
Plt Count 229
Sodium 127 L
Potassium 3.7
Chloride 94 L
Carbon Dioxide 28
BUN 15
Creatinine 0.7
Glucose 92
Calcium 9.2
Vital Signs:
Vital Signs
Temp Pulse Resp BP Pulse Ox
97.6 F 74 18 160/93 98
12/22/23 07:29 12/22/23 07:29 12/22/23 07:29 12/22/23 07:29 12/22/23 07:29
I&O
12/21/23 12/22/23 12/23/23
06:59 06:59 06:59
Intake Total 1260 / 1260 1360 / 1360
Output Total 850 / 850 1905 / 1905 1200 / 1200
Balance 410 / 410 -545 / -545 -1200 / -1200
[2023-12-22 15:19] VITALS: BP 116/82
[2023-12-22] MEDS: LOVENOX 40 MG SC (17:02)
[2023-12-22] MEDS: TOPROL XL 100 MG PO (17:10)
[2023-12-22] MEDS: SEROQUEL 25 MG PO (20:37)
[2023-12-22] MEDS: MELATONIN 10 MG PO (20:37)
[2023-12-22 23:00] VITALS: BP 101/71
[2023-12-23 07:00] VITALS: BP 121/80
[2023-12-23 07:32] LABS: Blood Urea Nitrogen 15 mg/dl (9-20); Carbon Dioxide 25 mmol/L (22-30); Chloride 96 mmol/L (98-107); Estimated Creatinine Clearance 103 ml/min; Glucose 98 mg/dl (70-99); Potassium 3.4 mmol/L (3.5-5.1); Sodium 127 mmol/L (135-145); eGFR > 60.00
[2023-12-23] MEDS: FLOMAX 0.400000000000000022 MG PO ×2 (08:10→21:41)
[2023-12-23] MEDS: MIRALAX 17 GRAMS PO (08:10)
[2023-12-23] MEDS: ZYRTEC 10 MG PO (08:10)
[2023-12-23] MEDS: ZINC SULFATE 220 MG PO (08:10)
[2023-12-23] MEDS: ASPIR LOW (ENTERIC COATED) 81 MG PO (08:10)
[2023-12-23] MEDS: VITAMIN D3 (cholecalciferol) 25 MCG PO (08:11)
[2023-12-23] MEDS: VITAMIN C 1000 MG PO (08:11)
[2023-12-23] MEDS: PROTONIX 40 MG PO (08:11)
[2023-12-23] MEDS: DECADRON 4 MG PO ×2 (08:11→21:41)
[2023-12-23] MEDS: THERAGRAN 1 TABLET PO (08:11)
[2023-12-23] MEDS: PROSCAR 5 MG PO (08:11)
--- NOTE | 2023-12-23 12:10 | CM ---
Reviewed chart, placed a call to patient's to update that notification was received from Ashanti in admissions at [facility] that they do not have any bed availability. Patient's stated that she no longer wants patient to go to a SNF, she
would like for him to transfer to [facility] [place] as that is where patient gets his treatment.
Spoke with attending to update. He stated that a facility to facility transfer would have to take place unless, they take patient themselves which he stated would not be the most medically safe plan.
CM advised that there does not appear to be an accepting doctor, the family appears to be facilitating this independently.
Will await determination from family and attending regarding dispo plan
Case management will continue to follow and assist with discharge planning. Patient's is now stating that she would like to take patient to [facility]. It is unclear whether the family is attempting this themselves.
--- NOTE | 2023-12-23 13:41 | PN.CDI ---
CDI
- -
CDI:
Physician Documentation Request
Admit Date: 12/15/23 22:55
Dear Doctor Brian,
Clinical Indicators:
Patient admitted with altered mental status.
12/19 PN,'Altered mental status:-likely due to recent brain radiation, possible vasogenic edema, worsening brain metastases'
12/20 PN, 'acute encephalopathy due to recent radiation, improved with IV steroids.'
Sodium levels:
12/16/23 12/19/23 12/21/23
10:16 09:56 06:11
Sodium 133 L 129 L 128 L
12/22/23
06:03
Sodium 127 L
Based on the above, could you clarify the most likely type of encephalopathy:
Acute Metabolic Encephalopathy
Toxic Metabolic Encephalopathy
Other, please specify
Use of terms such as suspected, likely, concern for, or probable (associated with a specific diagnosis that is being evaluated, monitored, or treated as if it exists) are acceptable and can be coded in the inpatient setting, when documented at the
time of discharge.
Thank you,
MAKENNA Corea RN
CDI Specialist
available via tiger text
Please use your independent medical judgment in providing your response.
[2023-12-23 15:00] VITALS: BP 133/88
[2023-12-23 15:25] VITALS: BP 156/81; PULSE 77; O2SAT 96
[2023-12-23 15:30] VITALS: BP 133/88; PULSE 88; O2SAT 99
[2023-12-23] MEDS: TOPROL XL 100 MG PO (17:13)
[2023-12-23] MEDS: LOVENOX 40 MG SC (17:13)
--- NOTE | 2023-12-23 19:40 | W.PN.HOSP.TC ---
Today's Communication/Plan
-
Will attempt to transfer patient to [place] per patient's request
Continue Dexamethasone
Assessment / Plan
Assessment / Plan
Physical Exam
Gen: NAD, Awake and alert
HEENT: Normocephalic
Neck: supple.
CV: continues to remain RRR, +S1/S2.
Resp: continues to remain CTAB.
Abd: +BS, soft, NT, ND
Skin: Warm. Dry.
Neuro: Alert. Awake.
Psych: Normal mood and affect.
Assessment/Plan
Altered mental status - suspected Acute Metabolic Encephalopathy
-likely due to recent brain radiation, possible vasogenic edema, worsening brain metastases
-h/o lung cancer status post upper lobectomy with metastases to frontal lobe/occipital lobe with midline shift and leptomeningeal involvement status post prior craniotomy/gamma knife/chemotherapy and now radiation
-on admission, no focal neurological deficits on examination, patient is answering questions and following commands in some capacity which is an improvement as per family.
-Urinalysis negative
-Chest x-ray negative
-COVID and influenza NEG
-CT head shows encephalomalacia, new lobulated area slight increased attenuation left posterior/parietal/occipital region since 2017 measuring 3.1 cm with surrounding decreased attenuation which could represent mass/tumor with surrounding white
matter edema
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
-Patient's radiation oncologist is Dr. Juan Buck at [facility].� Phone number is [phone].�
-Dr. Mcmillan had a lengthy discussion with the patient's daughter at bedside on 12/16/23. She reported that the patient's oncologist stated that after his last radiation treatment there was nothing more that could be done for the patient. She requested
hospice at that time and a hospice consult was placed. Family met with hospice on 12/21/23 - however patient's told Dr. Torres on December 21, 2023 that plan is for patient to be discharged to a rehab facility WITHOUT hospice or comfort care --
however on December 23, 2023 patient's mentioned that she would like patient to be transferred to [facility] (Dr. Juan Buck's - patient's oncologist's - office was okay with patient being transferred)
-Haldol PRN and Seroquel for agitation
-Pt's mentation greatly improved on IV Decadron, cont but continue to taper to 4mg IV Q12H
-Continue Decadron PO 4 mg Q12H on discharge
-Follow-up closely with oncology and neurology outpatient
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
-Chest x-ray negative
-Pelvic x-ray no acute abnormality
-CT cervical spine no spine fracture
-CT head as written above
Paroxysmal atrial fibrillation
-Not on anticoagulation
-Continue aspirin
-Continue metoprolol
BPH with history of urinary retention
-Continue finasteride, tamsulosin
-antonio was previously placed for acute urinary retention
-Consulted urology, recommendations appreciated
-Bladder scan with 593 cc in bladder on December 22, 2023 morning
-Patient should either go home with antonio or restart scheduled intermittent cath 3-4 times daily (as per urology)
Other problems:
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 Continue PO fluid restriction.
Hypokalemia
History of nonsustained V. tach status post ICD in 2000
History of benign congenital heart murmur
Suspected sleep apnea
Essential hypertension
Lung cancer status post lobectomy with brain metastatic disease status post craniotomy/gamma knife/chemotherapy/immunotherapy: was to start Krazati
Prostate cancer
GERD/hiatal hernia: cont PPI
Psoriasis
Osteoarthritis
Hypercholesterolemia
Diverticulosis
Hemorrhoids
Left-sided hearing loss
Obesity due to excess calories
DNR/DNI
DVT prophylaxis: Lovenox
On December 23, 2023, patient's requested patient to be transferred to [facility], she mentioned that Dr. Juan Buck's office (nurse practitioner from his office) said hospitalist can initiate transfer. I spoke with patient's
extensively on December 23, 2023.
Total time spent today on caring for the patient including chart review, reviewing orders, speaking with patient's over the phone, seeing and examining the patient, and on documentation, was 60 minutes.
Anticipated Discharge: > 48 hours
Subjective/Interval History
-
Date of Service: December 23, 2023
Patient was seen and examined. He denied any new symptoms, although his mentioned today over the phone that from her standpoint, patient is declining.
Objective Data
-
Vital Signs:
Vital Signs
Temp Pulse Resp BP Pulse Ox
97.5 F 80 18 136/90 99
12/23/23 15:00 12/23/23 17:13 12/23/23 15:00 12/23/23 17:13 12/23/23 15:00
I&O
12/22/23 12/23/23 12/24/23
06:59 06:59 06:59
Intake Total 1360 / 1360 1150 / 1150 960 / 960
Output Total 1905 / 1905 2410 / 2410 1400 / 1400
Balance -545 / -545 -1260 / -1260 -440 / -440
[2023-12-23] MEDS: SEROQUEL 25 MG PO (21:41)
[2023-12-23] MEDS: MELATONIN 10 MG PO (21:41)
[2023-12-23] MEDS: TYLENOL 650 MG PO (21:43)
[2023-12-23 23:00] VITALS: BP 101/63
[2023-12-24 07:00] VITALS: BP 129/83
[2023-12-24 07:09] LABS: Hematocrit 39.1 % (39.0-52.0); Hemoglobin 14.8 g/dL (13.0-18.0); Mean Corp Hgb Conc. 37.9 g/dL (33.0-37.0); Mean Corpuscular Hgb 29.2 pg (27.0-31.0); Mean Corpuscular Volume 77.3 fL (80.0-94.0); Mean Platelet Volume 8.3 fL (7.4-10.4); Platelet Count 213 10^3/uL (130-400); Red Blood Cell Count 5.06 10^6/uL (4.70-6.10); Red Cell Dist. Width 14.8 % (11.5-14.5); White Blood Cell Count 8.7 10^3/uL (4.8-10.8)
[2023-12-24 07:10] LABS: Blood Urea Nitrogen 16 mg/dl (9-20); Carbon Dioxide 26 mmol/L (22-30); Chloride 97 mmol/L (98-107); Estimated Creatinine Clearance 103 ml/min; Glucose 98 mg/dl (70-99); Potassium 3.7 mmol/L (3.5-5.1); Sodium 126 mmol/L (135-145); eGFR > 60.00
[2023-12-24] MEDS: ZYRTEC 10 MG PO (08:24)
[2023-12-24] MEDS: VITAMIN D3 (cholecalciferol) 25 MCG PO (08:24)
[2023-12-24] MEDS: PROTONIX 40 MG PO (08:24)
[2023-12-24] MEDS: DECADRON 4 MG PO ×2 (08:24→20:02)
[2023-12-24] MEDS: MIRALAX 17 GRAMS PO (08:24)
[2023-12-24] MEDS: ASPIR LOW (ENTERIC COATED) 81 MG PO (08:24)
[2023-12-24] MEDS: FLOMAX 0.400000000000000022 MG PO ×2 (08:24→20:03)
[2023-12-24] MEDS: THERAGRAN 1 TABLET PO (08:24)
[2023-12-24] MEDS: VITAMIN C 1000 MG PO (08:24)
[2023-12-24] MEDS: ZINC SULFATE 220 MG PO (08:24)
[2023-12-24] MEDS: PROSCAR 5 MG PO (08:24)
[2023-12-24] MEDS: DILAUDID 0.5 MG IV (12:39)
--- NOTE | 2023-12-24 14:29 | W.PN.HOSP.TC ---
Addendum entered and electronically signed by Dio Torres MD 12/24/23 15:39:
Ordered salt tablets after discussing with nephrology via [employer].
Original Note:
Today's Communication/Plan
-
Consulted nephrology for worsening hyponatremia in the setting of cancer
Plan to try to transfer to [place] as per patient's family's request
Assessment / Plan
Assessment / Plan
Physical Exam
Gen: NAD, Awake and alert
HEENT: Normocephalic
Neck: supple.
CV: continues to remain RRR, +S1/S2.
Resp: continues to remain CTAB.
Abd: +BS, soft, NT, ND
Skin: Warm. Dry.
Neuro: Alert. Awake.
Psych: Normal mood and affect.
Assessment/Plan
Altered mental status - suspected Acute Metabolic Encephalopathy
-likely due to recent brain radiation, possible vasogenic edema, worsening brain metastases
-h/o lung cancer status post upper lobectomy with metastases to frontal lobe/occipital lobe with midline shift and leptomeningeal involvement status post prior craniotomy/gamma knife/chemotherapy and now radiation
-on admission, no focal neurological deficits on examination, patient is answering questions and following commands in some capacity which is an improvement as per family.
-Urinalysis negative
-Chest x-ray negative
-COVID and influenza NEG
-CT head shows encephalomalacia, new lobulated area slight increased attenuation left posterior/parietal/occipital region since 2017 measuring 3.1 cm with surrounding decreased attenuation which could represent mass/tumor with surrounding white
matter edema
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
-Patient's radiation oncologist is Dr. Juan Buck at [facility].� Phone number is [phone].�
-Dr. Mcmillan had a lengthy discussion with the patient's daughter at bedside on 12/16/23. She reported that the patient's oncologist stated that after his last radiation treatment there was nothing more that could be done for the patient. She requested
hospice at that time and a hospice consult was placed. Family met with hospice on 12/21/23 - however patient's told Dr. Torres on December 21, 2023 that plan is for patient to be discharged to a rehab facility WITHOUT hospice or comfort care --
however on December 23, 2023 patient's mentioned that she would like patient to be transferred to [facility] (Dr. Juan Buck's - patient's oncologist's - office was okay with patient being transferred)
-Haldol PRN and Seroquel for agitation
-Pt's mentation greatly improved on IV Decadron, cont but continue to taper to 4mg IV Q12H
-Continue Decadron PO 4 mg Q12H on discharge
-Follow-up closely with oncology and neurology outpatient
Recent fall 2 days prior to arrival, with head injury
-Chest x-ray negative
-Pelvic x-ray no acute abnormality
-CT cervical spine no spine fracture
-CT head as written above
Paroxysmal atrial fibrillation
-Not on anticoagulation
-Continue aspirin
-Continue metoprolol
BPH with history of urinary retention
-Continue finasteride, tamsulosin
-antonio was previously placed for acute urinary retention
-Consulted urology, recommendations appreciated
-Bladder scan with 593 cc in bladder on December 22, 2023 morning
-Patient should either go home with antonio or restart scheduled intermittent cath 3-4 times daily (as per urology)
Other problems:
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 Continue PO fluid restriction. Consulted nephrology due to worsening sodium, recommendations appreciated.
Hypokalemia
History of nonsustained V. tach status post ICD in 2000
History of benign congenital heart murmur
Suspected sleep apnea
Essential hypertension
Lung cancer status post lobectomy with brain metastatic disease status post craniotomy/gamma knife/chemotherapy/immunotherapy: was to start Krazati
Prostate cancer
GERD/hiatal hernia: cont PPI
Psoriasis
Osteoarthritis
Hypercholesterolemia
Diverticulosis
Hemorrhoids
Left-sided hearing loss
Obesity due to excess calories
DNR/DNI
DVT prophylaxis: Lovenox
On December 23, 2023, patient's requested patient to be transferred to [facility], she mentioned that Dr. Juan Buck's office (nurse practitioner from his office) said hospitalist can initiate transfer. I spoke with patient's
extensively on December 23, 2023.
Anticipated Discharge: > 48 hours
Subjective/Interval History
-
Date of Service: December 24, 2023
Patient was seen and examined. He reported no new symptoms, and nurse reported no new events reported overnight.
Objective Data
-
Labs:
Laboratory Results
12/24/23
06:17
WBC 8.7
Hgb 14.8
Hct 39.1
Plt Count 213
Sodium 126 L
Potassium 3.7
Chloride 97 L
Carbon Dioxide 26
BUN 16
Creatinine 0.8
Glucose 98
Calcium 9.0
Vital Signs:
Vital Signs
Temp Pulse Resp BP Pulse Ox
97.4 F 72 18 129/83 98
12/24/23 07:00 12/24/23 07:00 12/24/23 07:00 12/24/23 07:00 12/24/23 07:00
I&O
12/23/23 12/24/23 12/25/23
06:59 06:59 06:59
Intake Total 1150 / 1150 1200 / 1200
Output Total 2410 / 2410 1400 / 1400
Balance -1260 / -1260 -200 / -200
[2023-12-24 15:00] VITALS: BP 110/75
[2023-12-24 15:09] VITALS: BP 105/68; PULSE 79; O2SAT 97
--- NOTE | 2023-12-24 15:45 | W.CON.NEPH ---
Consultation
-
Date/Time Consultation Requested: 12/24/23 14:28
Date/Time Consultation Performed: 12/24/23 3:45PM
Requesting Provider: Dio Alcocer
Performing Provider: Ivy Childs
Reason for Consultation: Hyponatremia
Medical History
-
Chief Complaint: hyponatremia
History of Present Illness:
Mr. Jeyson Bower is a 68YOM with PMH of Afib (no AC), Vtach s/p ICD, congenital heart murmur, c/f sleep apnea, HTN, lung cancer c/b brain mets, prostate cancer, GERD, hiatal hernia, psoriasis, OA, DLD, BPH with hx of urinary rettnion, obesity who
presented initially with AMS and confusion.
Per the family, the patient has not been doing well since arriving in the hospital. He is not eating well and they feel he is very deconditioned. Per the notes, it appears that there have been ongoing discussions about hospice versus transfer to
[facility]. The family currently wants the patient to be transferred to [facility]. It appears that his mentation has improved since placing him on IV Decadron.
The patient states that his main complaint is back pain. He also states that it is difficult to eat because of low appetite and dry mouth.
Reviewing his hyponatremia, his Na was 135 on admission, it has slowly drifted down to 126.
Past Medical History
paroxysmal atrial fibrillation not on anticoagulation
nonsustained V. tach status post ICD in 2000
benign congenital heart murmur
suspected sleep apnea
hypertension
lung cancer� status post upper lobectomy c/b brain metastases including occipital lesion/frontal lesion with leptomeningeal involvemnt
BPH with hx of urinary retention
obesity
Past Surgical History: Other (lobectomy, craniotomy)
Social History
Tobacco: Former Smoker
Alcohol: Occasional
Drug: None
Family History
Family History: Not Pertinent
Allergies / Home Medications
Allergy/AdvReac Type Severity Reaction Status Date / Time
No Known Allergies Allergy Verified 07/30/23 02:48
Medication Instructions Recorded Confirmed Type
ascorbic acid (vitamin C) 500 mg 1,000 mg PO DAILY Supplement 09/30/21 12/15/23 History
tablet (Vitamin C)
fish oil-dha-epa 1,200 mg-144 1,000 mg PO DAILY Supplement 09/30/21 12/15/23 History
mg-216 mg capsule
omeprazole 20 mg capsule,delayed 20 mg PO DAILY Gastrointestinal 09/30/21 12/15/23 History
release Issue
cetirizine 10 mg tablet (Zyrtec) 10 mg PO DAILY Allergies 11/26/22 12/15/23 History
metoprolol succinate 100 mg 100 mg PO QPM Blood Pressure 11/26/22 12/15/23 History
tablet,extended release 24 hr
(Toprol XL)
multivitamin 1 tab PO DAILY Supplement 11/26/22 12/15/23 History
adagrasib 200 mg tablet (Krazati) 600 mg PO DAILY lung cancer 12/15/23 12/15/23 History
aspirin 81 mg tablet,delayed 81 mg PO DAILY Blood Clot 12/15/23 12/15/23 History
release Prevention/Tx
cholecalciferol (vitamin D3) 25 25 mcg PO DAILY Supplement 12/15/23 12/15/23 History
mcg (1,000 unit) tablet (Vitamin
D3)
dexamethasone 1 mg tablet 2 mg PO . DIRECTED 12/15/23 12/15/23 History
Anti-Inflammatory
finasteride 5 mg tablet 5 mg PO DAILY Urinary Issue 12/15/23 12/15/23 History
glucosamine sulf dipot 1 cap PO DAILY Supplement 12/15/23 12/15/23 History
chlr,msm,chond 550 mg-C 30 mg-paul
1 mg capsule (Glucosamine
Chondroitin)
tamsulosin 0.4 mg capsule (Flomax) 0.4 mg PO BID Urinary Issue 12/15/23 12/15/23 History
zinc acetate 50 mg (zinc) capsule 50 mg PO DAILY Supplement 12/15/23 12/15/23 History
Review of Systems
-
History Source: Patient and Family
All other systems: Negative unless noted
Constitutional: Fatigue
EENT: Other (dry throat)
Abdomen/GI: Nausea and Constipated
: Incontinence
Musculoskeletal: Other (back pain)
Skin: Other
Neurological: Dizzy
Physical Exam
Vital Signs
Vital Signs
Temp Pulse Resp BP Pulse Ox
97.4 F 72 18 129/83 98
12/24/23 07:00 12/24/23 07:00 12/24/23 07:00 12/24/23 07:00 12/24/23 07:00
Lab Results
WBC 8.7 10^3/uL (4.8-10.8) 12/24/23 06:17
RBC 5.06 10^6/uL (4.70-6.10) 12/24/23 06:17
Hgb 14.8 g/dL (13.0-18.0) 12/24/23 06:17
Hct 39.1 % (39.0-52.0) 12/24/23 06:17
Plt Count 213 10^3/uL (130-400) 12/24/23 06:17
Sodium 126 mmol/L (135-145) L 12/24/23 06:17
Potassium 3.7 mmol/L (3.5-5.1) 12/24/23 06:17
Chloride 97 mmol/L (98-107) L 12/24/23 06:17
Carbon Dioxide 26 mmol/L (22-30) 12/24/23 06:17
BUN 16 mg/dl (9-20) 12/24/23 06:17
Creatinine 0.8 mg/dL (0.7-1.3) 12/24/23 06:17
eGFR > 60.00 12/24/23 06:17
Glucose 98 mg/dl (70-99) 12/24/23 06:17
Calcium 9.0 mg/dl (8.4-10.2) 12/24/23 06:17
Albumin 4.0 g/dl (3.5-5.0) 12/16/23 10:16
Physical Exam
General: AOx3
HEENT: PERRL, EOMI, Anicteric, Conjunctivae Clear, Ear/Nose Intact and Hearing Normal (hard of hearing)
Respiratory: Clear
Cardiac: S1/S2, Regular Rate/Rhythm and Murmur
Breast: N/A
Abdomen: Soft, Nontender and Other (distended)
Rectal: Deferred by Provider
Musculoskeletal: No Edema
Skin: No Rash, Warm, Dry, No Clubbing and No Cyanosis
Neuro: Nonfocal/Grossly Intact
Psych: Mood/afflect pleasant and Appropriate
Assessment/Plan
-
Assessment:
Hyponatremia
Recent fall with head injury
PAfib
BPH with history of urinary retention (Ferrell in place)
History of nonsustained V. tach status post ICD in 2000
History of benign congenital heart murmur
Suspected sleep apnea
Essential hypertension
Lung cancer status post lobectomy with brain metastatic disease status post craniotomy/gamma knife/chemotherapy/immunotherapy: was to start Krazati
Prostate cancer
GERD/hiatal hernia: cont PPI
Psoriasis
Osteoarthritis
Hypercholesterolemia
Diverticulosis
Hemorrhoids
Left-sided hearing loss
Obesity due to excess calories
Plan:
Na 135 on arrival, now down to 126 (127 yesterday)
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
I have requested Christophe and [facility] for better understanding of etiology
Initiated on salt tabs 1gm PO BID
Continue FR 40oz
Pending urine studies, he may need hypertonic saline tomorrow
encouraged increased PO intake
Data Reviewed
-
Radiology: Image Personally Visualized and interpreted (CXR clear)
Labs: Labs Reviewed by me and Discussed with Physician
Old Records: Reviewed
[2023-12-24] MEDS: SODIUM CHLORIDE 1 GRAM PO ×2 (15:53→22:31)
--- NOTE | 2023-12-24 16:44 | CM ---
patient on iv decadron,worsening hyponatemia-nephrology/oncology following,iv dilaudid.call from sweta gonzalez who asked if attending has started transfer paper work to [facility].there is an accepting phyaician dr chano toribio.
shey texted cm that he would start the paper work tomorrow for transfer to [place]. called bill back to bree response i received from attending.
Plan:transfer to [facility] when bed is available.
[2023-12-24] MEDS: LOVENOX 40 MG SC (18:09)
[2023-12-24] MEDS: TOPROL XL 100 MG PO (18:10)
[2023-12-24 19:12] LABS: Osmolality Urine 318 mOsm/kg (300-900)
[2023-12-24 19:40] LABS: Urine Sodium 28 mmol/L (30-90)
[2023-12-24] MEDS: TYLENOL 650 MG PO (20:03)
[2023-12-24] MEDS: MELATONIN 10 MG PO (22:31)
[2023-12-24] MEDS: SEROQUEL 25 MG PO (22:31)
[2023-12-24 23:40] VITALS: BP 117/78
[2023-12-25 06:15] LABS: Hematocrit 38.4 % (39.0-52.0); Hemoglobin 14.2 g/dL (13.0-18.0); Mean Corpuscular Hgb 28.7 pg (27.0-31.0); Mean Corpuscular Volume 77.6 fL (80.0-94.0); Mean Platelet Volume 8.6 fL (7.4-10.4); Platelet Count 199 10^3/uL (130-400); Red Blood Cell Count 4.95 10^6/uL (4.70-6.10); Red Cell Dist. Width 14.8 % (11.5-14.5); White Blood Cell Count 7.2 10^3/uL (4.8-10.8)
[2023-12-25] MEDS: TYLENOL 650 MG PO (06:22)
[2023-12-25 06:35] LABS: Blood Urea Nitrogen 16 mg/dl (9-20); Calcium 9.2 mg/dl (8.4-10.2); Carbon Dioxide 25 mmol/L (22-30); Chloride 95 mmol/L (98-107); Estimated Creatinine Clearance 103 ml/min; Glucose 109 mg/dl (70-99); Potassium 3.5 mmol/L (3.5-5.1); Sodium 129 mmol/L (135-145); eGFR > 60.00
[2023-12-25 07:41] VITALS: BP 124/73
[2023-12-25] MEDS: FLOMAX 0.400000000000000022 MG PO ×2 (08:04→21:05)
[2023-12-25] MEDS: PROSCAR 5 MG PO (08:04)
[2023-12-25] MEDS: VITAMIN D3 (cholecalciferol) 25 MCG PO (08:04)
[2023-12-25] MEDS: ASPIR LOW (ENTERIC COATED) 81 MG PO (08:04)
[2023-12-25] MEDS: PROTONIX 40 MG PO (08:04)
[2023-12-25] MEDS: ZINC SULFATE 220 MG PO (08:05)
[2023-12-25] MEDS: SODIUM CHLORIDE 1 GRAM PO ×2 (08:05→21:05)
[2023-12-25] MEDS: MIRALAX 17 GRAMS PO (08:05)
[2023-12-25] MEDS: ZYRTEC 10 MG PO (08:05)
[2023-12-25] MEDS: DECADRON 4 MG PO ×2 (08:05→21:05)
[2023-12-25] MEDS: THERAGRAN 1 TABLET PO (08:05)
[2023-12-25] MEDS: VITAMIN C 1000 MG PO (08:06)
[2023-12-25] MEDS: DILAUDID 0.5 MG IV ×2 (08:17→16:09)
--- NOTE | 2023-12-25 10:49 | CM ---
Received call from patient's daughter requesting return call as to status of patient's transfer. Placed a return call to patient's daughter, Luiza who stated that she has already spoken with the doctor and has all the information she needs.
Plan: Case management will continue to follow and assist with discharge planning. Patient to transfer to [place].
[2023-12-25 14:40] VITALS: BP 105/68; PULSE 79; O2SAT 97
--- NOTE | 2023-12-25 15:32 | W.PN.NEPH.PH ---
Today's Communication / Plan
-
cotn salt tab and FR
labs in am
Assessment/Plan
-
Assessment:
Hyponatremia
Recent fall with head injury
PAfib
BPH with history of urinary retention (Ferrell in place)
History of nonsustained V. tach status post ICD in 2000
History of benign congenital heart murmur
Suspected sleep apnea
Essential hypertension
Lung cancer status post lobectomy with brain metastatic disease status post craniotomy/gamma knife/chemotherapy/immunotherapy: was to start Krazati
Prostate cancer
GERD/hiatal hernia: cont PPI
Psoriasis
Osteoarthritis
Hypercholesterolemia
Diverticulosis
Hemorrhoids
Left-sided hearing loss
Obesity due to excess calories
Plan:
Na 135 on arrival, herlinda to 126 and improving with FR and salt tab to 129
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
UOsm high 318, low U na 28
cont salt tabs 1gm PO BID
Continue FR 40oz
encouraged increased solute intake
pending shahida to [facility]
d/w family at bedside
d/w nursing
-
-
Date of Service: December 25, 2023
CC / HPI / ROS
-
Chief Complaint:
Hyponatremia
History of Present Illness:
sodium better at 129
still poor po intake
BP stable
abd Xray normal today
Review of Systems:
no n/v
pt hard of hearing so diffcult to obtain history
no sob
Labs
-
Labs:
WBC 7.2 10^3/uL (4.8-10.8) 12/25/23 05:27
RBC 4.95 10^6/uL (4.70-6.10) 12/25/23 05:27
Hgb 14.2 g/dL (13.0-18.0) 12/25/23 05:27
Hct 38.4 % (39.0-52.0) L 12/25/23 05:27
Plt Count 199 10^3/uL (130-400) 12/25/23 05:27
Sodium 129 mmol/L (135-145) L 12/25/23 05:27
Potassium 3.5 mmol/L (3.5-5.1) 12/25/23 05:27
Chloride 95 mmol/L (98-107) L 12/25/23 05:27
Carbon Dioxide 25 mmol/L (22-30) 12/25/23 05:27
BUN 16 mg/dl (9-20) 12/25/23 05:27
Creatinine 0.8 mg/dL (0.7-1.3) 12/25/23 05:27
eGFR > 60.00 12/25/23 05:27
Glucose 109 mg/dl (70-99) H 12/25/23 05:27
Calcium 9.2 mg/dl (8.4-10.2) 12/25/23 05:27
Albumin 4.0 g/dl (3.5-5.0) 12/16/23 10:16
Physical Exam
-
Vital Signs:
Vital Signs
Temp Pulse Resp BP Pulse Ox
97.8 F 71 17 124/73 98
12/25/23 07:41 12/25/23 07:41 12/25/23 07:41 12/25/23 07:41 12/25/23 07:41
Cardiovascular:: Regular rate and rhythm
Respiratory:: Bilateral: CTA
Lung Excursion:: Normal
Abdomen:: Nontender and Soft
Extremity Edema:: None: Bilateral:
Ferrell Catheter: No
[2023-12-25 15:51] VITALS: BP 105/68
--- NOTE | 2023-12-25 16:58 | PTCARENOTE ---
Pt c/o pain and inable to urinate. Bladder scan completed on pt showing >750. MD made aware and order for antonio placed. Inserted #16 Fr antonio w/o difficulty that drained 900cc clear yellow urine. Pt feels more comfortable and relief of pain.
--- NOTE | 2023-12-25 18:30 | W.PN.HOSP.TC ---
Today's Communication/Plan
-
I spoke with [facility] (phone number [phone]), and hospitalist Dr. Joshua Cordova accepted the patient for transfer; I spoke with the [facility] again twice on December 25, 2023 and I
was told that patient should have a bed available either on the evening of December 25, 2023 or latest by December 26, 2023.
Continue Antonio Catheter for Urinary Retention
Continue steroids
Encourage PO intake
Assessment / Plan
Assessment / Plan
Physical Exam
Gen: NAD, Awake and alert
HEENT: Normocephalic
Neck: supple.
CV: continues to remain RRR, +S1/S2.
Resp: continues to remain CTAB.
Abd: +BS, soft, NT, ND
Skin: Warm. Dry.
Neuro: Alert. Awake.
Psych: Normal mood and affect.
Assessment/Plan
Altered mental status - suspected Acute Metabolic Encephalopathy
-likely due to recent brain radiation, possible vasogenic edema, worsening brain metastases
-h/o lung cancer status post upper lobectomy with metastases to frontal lobe/occipital lobe with midline shift and leptomeningeal involvement status post prior craniotomy/gamma knife/chemotherapy and now radiation
-on admission, no focal neurological deficits on examination, patient is answering questions and following commands in some capacity which is an improvement as per family.
-Urinalysis negative
-Chest x-ray negative
-COVID and influenza NEG
-CT head shows encephalomalacia, new lobulated area slight increased attenuation left posterior/parietal/occipital region since 2017 measuring 3.1 cm with surrounding decreased attenuation which could represent mass/tumor with surrounding white
matter edema
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
-Patient's radiation oncologist is Dr. Juan Buck at [facility].� Phone number is [phone].�
-Dr. Mcmillan had a lengthy discussion with the patient's daughter at bedside on 3/6/24. She reported that the patient's oncologist stated that after his last radiation treatment there was nothing more that could be done for the patient. She requested
hospice at that time and a hospice consult was placed. Family met with hospice on 12/21/23 - however patient's told Dr. Torres on December 21, 2023 that plan is for patient to be discharged to a rehab facility WITHOUT hospice or comfort care --
however on December 23, 2023 patient's mentioned that she would like patient to be transferred to [facility] (Dr. Juan Buck's - patient's oncologist's - office was okay with patient being transferred)
-Haldol PRN and Seroquel for agitation
-Pt's mentation greatly improved on IV Decadron, cont but continue to taper to 4mg IV Q12H
-Continue Decadron PO 4 mg Q12H on discharge
-Follow-up closely with oncology and neurology outpatient
-I spoke with [facility] (phone number [phone]), and hospitalist Dr. Joshua Cordova accepted the patient for transfer; I spoke with the [facility] again twice on December 25, 2023 and
I was told that patient should have a bed available either on the evening of December 25, 2023 or latest by December 26, 2023.
Recent fall 2 days prior to arrival, with head injury
-Chest x-ray negative
-Pelvic x-ray no acute abnormality
-CT cervical spine no spine fracture
-CT head as written above
Paroxysmal atrial fibrillation
-Not on anticoagulation
-Continue aspirin
-Continue metoprolol
BPH with history of urinary retention
-Continue finasteride, tamsulosin
-antonio was previously placed for acute urinary retention, then taken out, and as of December 25, 2023, patient has needed a Antonio Catheter placed again
-Consulted urology, recommendations appreciated
-Bladder scan with 593 cc in bladder on December 22, 2023 morning
-Patient should either go home with antonio or restart scheduled intermittent cath 3-4 times daily (as per urology)
Concern for Constipation
-As per radiologist's report, there was a small volume of stool at the rectosigmoid colon but otherwise a relative paucity of stool within the colon
Other problems:
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 Continue PO fluid restriction of 40 ounces daily. Continue salt tablets. Encourage increased solute intake. Consulted nephrology due to worsening sodium, recommendations appreciated.
Hypokalemia
History of nonsustained V. tach status post ICD in 2000
History of benign congenital heart murmur
Suspected sleep apnea
Essential hypertension
Lung cancer status post lobectomy with brain metastatic disease status post craniotomy/gamma knife/chemotherapy/immunotherapy: was to start Krazati
Prostate cancer
GERD/hiatal hernia: cont PPI
Psoriasis
Osteoarthritis
Hypercholesterolemia
Diverticulosis
Hemorrhoids
Left-sided hearing loss
Obesity due to excess calories
DNR/DNI
DVT prophylaxis: Lovenox
On December 23, 2023, patient's requested patient to be transferred to [facility], she mentioned that Dr. Juan Buck's office (nurse practitioner from his office) said hospitalist can initiate transfer. I spoke with patient's
extensively on December 23, 2023.
Total time spent today on caring for the patient including chart review, reviewing and placing orders, speaking with patient's , speaking with [facility], documentation, seeing and examining the patient was 60
minutes.
Anticipated Discharge: 24 - 48 hours
Subjective/Interval History
-
Date of Service: December 25, 2023
Patient was seen and examined. He was sleeping comfortably, woke up and denied any new symptoms or any other new complaints. He had urinary retention later in the day, for which antonio catheter needed to be placed.
Objective Data
-
Labs:
Laboratory Results
12/25/23
05:27
Sodium 129 L
Potassium 3.5
Chloride 95 L
Carbon Dioxide 25
BUN 16
Creatinine 0.8
Glucose 109 H
Calcium 9.2
Vital Signs:
Vital Signs
Temp Pulse Resp BP Pulse Ox
98 F 79 17 105/68 97
12/25/23 15:51 12/25/23 15:51 12/25/23 15:51 12/25/23 15:51 12/25/23 15:51
I&O
12/24/23 12/25/23 12/26/23
06:59 06:59 06:59
Intake Total 1200 / 1200 480 / 480 600 / 600
Output Total 1400 / 1400 700 / 700 900 / 900
Balance -200 / -200 -220 / -220 -300 / -300
[2023-12-25] MEDS: LOVENOX 40 MG SC (18:37)
[2023-12-25] MEDS: TOPROL XL 100 MG PO (18:40)
[2023-12-25] MEDS: MELATONIN 10 MG PO (21:05)
[2023-12-25] MEDS: SEROQUEL 25 MG PO (21:05)
[2023-12-25 23:05] VITALS: BP 100/68
--- NOTE | 2023-12-28 13:45 | W.DCSUMMARY ---
Discharge Summary
Discharge Data
Date of Admission: 12/15/23
Date of Discharge: 12/25/23
Total time spent discharging patient (in min): 70
-
Pending Results: No
Hospital Course
68-year-old male with past medical history of paroxysmal atrial fibrillation not on anticoagulation, nonsustained V. tach status post ICD in 2000, benign congenital heart murmur, suspected sleep apnea, hypertension, lung cancer�status post upper
lobectomy, brain metastases including occipital lesion/frontal lesion with leptomeningeal involvement status post craniotomy/with midline shift and leptomeningeal involvement status post prior craniotomy/gamma knife/chemotherapy and now radiation -
follows at [facility], gamma knife and chemotherapy/immunotherapy, prostate cancer, GERD, hiatal hernia psoriasis, osteoarthritis, hypercholesterolemia, diverticulosis, hemorrhoids, benign prostatic hyperplasia with history of urinary
retention, obesity and left hearing loss presented with altered mental status, confusion and trouble speaking since earlier in the day on the day of presentation.
Patient could not get an MRI due to pacemaker. CT Head was done, and showed, as per radiologist's report, encephalomalacia, new lobulated area slight increased attenuation left posterior/parietal/occipital region since 2017 measuring 3.1 cm with
surrounding decreased attenuation which could represent mass/tumor with surrounding white matter edema. Hospitalist Dr. Mcmillan had a lengthy discussion with the patient's daughter who said that the patient's oncologist stated that after his last
radiation treatment there was nothing more that could be done for the patient.�Patient's daughter requested hospice and hospice consult was placed.
Dr. Mcmillan discussed patient's case with the patient's radiation oncologist, Dr. Juan Buck, over the phone. Dr. Buck recommended attempting treatment with IV Decadron to see whether it improves the patient's postradiation delirium: Decadron 10 mg IV
x 1 dose followed by 6 mg IV every [address] Buck and Dr. Mcmillan both still recommended that the family meet with hospice. Decadron improved patient's mental status. Patient's family later decided no hospice at this time, but rather discharge to a
rehab facility without hospice. Urology was consulted for urinary retention, antonio was taken out but had to be placed in again because of urinary retention.
Patient was found to have hyponatremia, salt tablets were ordered and nephrology was consulted. Patient's hyponatremia was determined to be most likely due to syndrome of inappropriate antidiuretic hormone secretion as well as poor oral intake. The
recommendation was for daily oral fluid restriction of 40 ounces. Patient's sodium improved. Hospitalist Dr. Joshua Cordova accepted patient for transfer to [facility] and patient was transferred to [place] overnight on December 25, 2023
to December 26, 2023.
Discharge Plan
-
Patient Disposition: Acute Care Hospital
Discharge Orders:
Discharge Patient (As Directed); Ordered 12/25/23
Ordered By: Dio Torres
Discharge Date and Time
Discharge Date/Time: 12/26/23 01:00
== END 2023-12-26 01:00 | disposition short-term general hospital (02) | DRG 54 ==
LOC: 3 WEST ACU 22:55
PROVIDERS: Internal Medicine; ADMITTING PHYSICIAN Hospitalist; ATTENDING PHYSICIAN Hospitalist; CONSULT PHYSICIAN Specialist; CONSULT PHYSICIAN Student in an Organized Health Care Education/Training Program; EMERGENCY PHYSICIAN Emergency Medicine; FAMILY PHYSICIAN Family Medicine
DX: C79.31 Secondary malignant neoplasm of brain (principal); G93.41 Metabolic encephalopathy; G93.6 Cerebral edema; E22.2 Syndrome of inappropriate secretion of antidiuretic hormone; E87.6 Hypokalemia; K21.9 Gastro-esophageal reflux disease without esophagitis; I48.0 Paroxysmal atrial fibrillation; I10 Essential (primary) hypertension; E66.09 Other obesity due to excess calories; Z68.30 Body mass index [BMI] 30.0-30.9, adult; G47.30 Sleep apnea, unspecified; N40.1 Benign prostatic hyperplasia with lower urinary tract symptoms
CPT/HCPCS: 51702; 70450; 71046; 72125; 72170; 74018; 80048; 80053; 81003; 83735; 83935; 84300; 85025; 85027; 87502; 87811; 93005; 97116; 97163; 97167; 97530; 97535; 99285; J2358